=== PATIENT | female | born 1940 | race African-American/Black ===

== ENCOUNTER 2020-10-24 16:25 | Inpatient (IN) | payer MEDICARE, OTHER ==
[~2020-10-24] VITALS: Ht 154.9 cm; Wt 94.3 kg
[2020-10-24 18:00] VITALS: BP 108/70
[2020-10-24] MEDS ORDERED: ACETAMINOPHEN 325 MG TABLET. PO PRN (18:45)
[2020-10-24] MEDS ORDERED: ASPIRIN RECTAL 300 MG SUPP. PR PRN (18:45)
[2020-10-24] MEDS: ATORVASTATIN CALCIUM 40 MG TABLET. PO SCH (21:00)
[2020-10-24 22:11] VITALS: BP 107/63
[2020-10-25] MEDS ORDERED: ONDANSETRON PF 4 MG/2 ML VIAL. IVP PRN (01:15)
[2020-10-25] MEDS: IV DEXTROSE 5 %-0.45 % NACL 1,000 ML IV SCH ×2 (02:40→17:23)
[2020-10-25 03:00] VITALS: BP 134/50
[2020-10-25 07:00] VITALS: BP 135/95
[2020-10-25 07:04] LABS: BASO % 0 % (0-3); EOS % 0 % (0-3); HEMATOCRIT 34.2 % (36.0-47.0); HEMOGLOBIN 11.4 g/dL (12.0-15.5); LYMPH # 0.8 x10^3/uL (1.0-4.8); LYMPH % 9 % (24-48); MEAN CORPUSCULAR HEMOGLOBIN 32 pg (25-35); MEAN CORPUSCULAR HGB CONC 33 g/dL (31-37); MEAN CORPUSCULAR VOLUME 96 fL (79-100); MONO # 0.6 x10^3/uL (0.0-1.1); MONO % 7 % (0-9); NEUT # 7.4 x10^3/uL (1.8-7.7); NEUT % 84 % (31-73); PLATELET COUNT 271 x10^3/uL (140-400); RED BLOOD COUNT 3.56 x10^6/uL (3.50-5.40); RED CELL DISTRIBUTION WIDTH 13.8 % (11.5-14.5); WHITE BLOOD COUNT 8.9 x10^3/uL (4.0-11.0)
[2020-10-25 07:23] LABS: ALBUMIN 2.9 g/dL (3.4-5.0); ALBUMIN/GLOBULIN RATIO 0.7 (1.0-1.7); CALCIUM 9.2 mg/dL (8.5-10.1); CREATININE 2.3 mg/dL (0.6-1.0); GFR 24.6; POTASSIUM 4.9 mmol/L (3.5-5.1); TOTAL BILIRUBIN 0.6 mg/dL (0.2-1.0); TOTAL PROTEIN 6.8 g/dL (6.4-8.2)
[2020-10-25] MEDS ORDERED: ASPIRIN ENTERIC COATED 325 MG TABLET.DR. PO SCH (08:00)
--- NOTE | 2020-10-25 08:44 | PDOC2 ---
CARDIAC CONSULT DATE OF CONSULT Date of Consult DATE: 10/25/20 TIME: 08:33 REASON FOR CONSULT Reason for Consult: AFIB, CVA REFERRING PHYSICIAN Referring Physician: Mikel SOURCE Source: Chart review CURRENT MEDICATIONS CURRENT MEDICATIONS Current Medications Medications (Trade) Dose Ordered Sig/Adrian Route PRN Reason Start Time Stop Time Status Last Admin Dose Admin Dextrose/Sodium Chloride 1,000 ml @ 100 mls/hr Q10H IV 10/25/20 01:15 10/25/20 02:40 ALLERGIES ALLERGIES: Coded Allergies: No Known Drug Allergies (Unverified , 10/24/20) VITALS/I&O VITALS/I&O: Vital Signs Date Time Temp Pulse Resp B/P (MAP) Pulse Ox O2 Delivery O2 Flow Rate FiO2 10/25/20 07:00 98.0 88 16 135/95 (108) 93 Room Air 98.0 I & O 10/24/20 10/24/20 10/25/20 15:00 23:00 07:00 Intake Total 0 ml 0 ml Output Total 600 ml Balance 0 ml -600 ml LABS Lab: Laboratory Tests Test 10/25/20 05:45 White Blood Count 8.9 x10^3/uL (4.0-11.0) Red Blood Count 3.56 x10^6/uL (3.50-5.40) Hemoglobin 11.4 g/dL (12.0-15.5) L Hematocrit 34.2 % (36.0-47.0) L Mean Corpuscular Volume 96 fL (79-100) Mean Corpuscular Hemoglobin 32 pg (25-35) Mean Corpuscular Hemoglobin Concent 33 g/dL (31-37) Red Cell Distribution Width 13.8 % (11.5-14.5) Platelet Count 271 x10^3/uL (140-400) Neutrophils (%) (Auto) 84 % (31-73) H Lymphocytes (%) (Auto) 9 % (24-48) L Monocytes (%) (Auto) 7 % (0-9) Eosinophils (%) (Auto) 0 % (0-3) Basophils (%) (Auto) 0 % (0-3) Neutrophils # (Auto) 7.4 x10^3/uL (1.8-7.7) Lymphocytes # (Auto) 0.8 x10^3/uL (1.0-4.8) L Monocytes # (Auto) 0.6 x10^3/uL (0.0-1.1) Eosinophils # (Auto) 0.0 x10^3/uL (0.0-0.7) Basophils # (Auto) 0.0 x10^3/uL (0.0-0.2) Sodium Level 138 mmol/L (136-145) Potassium Level 4.9 mmol/L (3.5-5.1) Chloride Level 101 mmol/L (98-107) Carbon Dioxide Level 30 mmol/L (21-32) Anion Gap 7 (6-14) Blood Urea Nitrogen 27 mg/dL (7-20) H Creatinine 2.3 mg/dL (0.6-1.0) H Estimated GFR (Cockcroft-Gault) 24.6 BUN/Creatinine Ratio 12 (6-20) Glucose Level 103 mg/dL (70-99) H Calcium Level 9.2 mg/dL (8.5-10.1) Total Bilirubin 0.6 mg/dL (0.2-1.0) Aspartate Amino Transferase (AST) 16 U/L (15-37) Alanine Aminotransferase (ALT) 18 U/L (14-59) Alkaline Phosphatase 92 U/L (46-116) Total Protein 6.8 g/dL (6.4-8.2) Albumin 2.9 g/dL (3.4-5.0) L Albumin/Globulin Ratio 0.7 (1.0-1.7) L Laboratory Tests 10/25/20 05:45 Laboratory Tests 10/25/20 05:45 ASSESSMENT/PLAN ASSESSMENT/PLAN 1. Acute left MCA CVA 2. PAFIB: noted on 07/2020. Presently on AFIB. she declined any cardiac workup and anticoagulation therapy 3. JULIA on CKD; Cr down to 2.3 4. Hyperkalemia; resolved 5. Hypertension; controlled 6. Hyperlipidemia: LDL 113 Recommendations 1. Start on low dose IV metoprolol. 2. Statin pending swallow eval 3. Lovenox for now. Further discussion with pt and family in regards to anticoagulation and goals of care. Will DC ASA while on lovenox. 4. TTE today. 5. DC lasix and ACEi. IVF while NPO 6. Supportive care LORENZO MORRIS APRN Oct 25, 2020 08:44
--- NOTE | 2020-10-25 09:30 | HP ---
ADMIT DATE: 10/25/2020 HISTORY OF PRESENT ILLNESS: The patient is an 80-year-old -[place] female patient who was admitted to [facility] to Emergency Room with altered mental status. Her family stated that she was at her normal state of health at around 6:30 in the morning and was acting normally; however, sometimes afterwards the patient became confused and approximately 30 minutes prior to arrival to the Emergency Room, she was having decreased movement in her right side. No reported recent illness, fever, chills or headaches. By the time she arrived to the Emergency Room, the patient was unresponsive and unable to provide any significant history. On clinical examination, her [place] Coma Scale was 9. She does respond to noxious stimuli and appeared to have decreased strength on the right side of the face, right upper and right lower extremity. She was extensively investigated and has had lab work, which showed that her CBC was unremarkable. Her chemistry showed she has hyperkalemia with a potassium of 6.2 on chronic kidney disease with BUN of 40, creatinine 3. PT, INR and aPTT were normal. She had a CT scan done, which basically showed that she has generalized parenchymal atrophy with areas of decreased attenuation are seen within the periventricular and subcortical white matter on both cerebral hemispheres consistent with area of small vessel ischemic disease. No acute parenchymal abnormality seen. No extra-axial fluid collection is noted. No skull fracture. Her bilateral carotid Doppler showed no evidence of greater than 50% stenosis involving the internal carotid arteries. Her chest x-ray showed no acute pulmonary finding. She was admitted with altered mental status, likely due to middle cerebral artery territory infarct with right side hemiplegia together with aphasia and dysphagia. We did repeat another CT scan of the head yesterday, which showed that the patient has new hypodensity within the left basal ganglia involving the caudate and putamen, concerning for ischemia. No intracranial hemorrhage. Mild mass effect on the anterior horn of the left lateral ventricle. No hydrocephalus. Mild brain parenchymal volume loss, mild additional foci of decreased attenuation within the hemispheric white matter, most often due to chronic microvascular ischemia. Imaged orbits are unremarkable. Imaged paranasal sinuses and mastoid air cells are clear. No acute calvarial fracture. Given that the patient continued to be aphasic and has dysphagia, discussed with her family. The patient was transferred to [facility] to consult the Gastroenterology team for placement of a PEG tube, consult the Neurology as well as the Cardiology as she is known to have atrial fibrillation; however, she was not on any anticoagulation before. PAST MEDICAL HISTORY: Significant for hypertension, hyperlipidemia, chronic kidney disease, rheumatic fever, glaucoma. She is legally blind and she is known to have chronic atrial fibrillation without anticoagulation. Apparently, she is known to the Cardiology team at [facility]. She apparently was diagnosed with atrial fibrillation on 07/2020. Apparently, anticoagulation was offered to her at that time, but she was not willing to take any medication. PAST SURGICAL HISTORY: Significant for bilateral cataract extraction, tubal ligation, cholecystectomy, back surgery. ALLERGIES: She has no known drug allergies. MEDICATIONS: She was on following home medications: She was on metoprolol succinate 200 mg once a day, amlodipine besylate 10 mg once a day, ramipril 10 mg once a day, potassium chloride 20 mEq once a day, furosemide 40 mg daily, magnesium oxide 400 mg daily, omeprazole 40 mg once a day and paricalcitol 1 mcg 3 times per week for hyperparathyroidism on Friday, Friday, and Friday. FAMILY HISTORY: She has a sister still alive and older. She has 2 brothers who of cancer. One brother of emphysema. One sister of cancer and one sister of emphysema. Both parents are . They when she was very young. SOCIAL HISTORY: She is , has 2 daughters and 1 son. She never smoked. Does not drink alcohol or use recreational drugs. She is retired. REVIEW OF SYSTEMS: Unobtainable. PHYSICAL EXAMINATION: GENERAL: When I examined her, she looked well and was clearly in no apparent respiratory distress. No pallor, jaundice, cyanosis or thyromegaly. No jugular venous distention. No lower limb edema. VITAL SIGNS: Her heart rate was 110, blood pressure was 134/50, temperature was 98.6, respiratory rate was 16, and oxygen saturation was 94% on room air. HEAD, EYES, EARS, NOSE AND THROAT: Normocephalic, atraumatic. NECK: Supple. HEART: Showed normal first and second heart sounds. No gallop, rub or murmur. CHEST: Clear to auscultation. No crepitation or rhonchi. ABDOMEN: Distended, soft, nontender. NEUROLOGIC: She is definitely more responsive. She attempts to open her eyes and also attempts to mouth some words. This morning, she definitely respond to verbal command. She lifts her left arm and squeezes fingers and she wiggled her toes when asked to do so. She has flaccid paralysis of the right upper and right lower extremity and right-sided facial droop. LABORATORY WORK: This morning showed a white cell count of 8900, hemoglobin 11.4, hematocrit 34, MCV 96, and platelet count of 271,000. Her chemistry showed that her serum sodium was 138, potassium 4.9, chloride 106, bicarbonate 30, anion gap of 7, BUN 27, creatinine 2.3, estimated GFR was 24 mL per minute. Her glucose was 103, calcium was 9.2. Total bilirubin, AST, ALT, alkaline phosphatase were normal. Total protein 6.8, albumin was 2.9. ASSESSMENT: 1. 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 Has acute on chronic kidney injury, improved as her serum creatinine came down from 3 to 2.3 mg/dL. 2. Hyperkalemia, resolved. Her potassium is 4.9. 3. The patient has multiple other medical problems including; hypertension, hyperlipidemia, chronic kidney disease, glaucoma, rheumatic fever as well as chronic atrial fibrillation. PLAN: My plan is to consult the neurologist, club former as well as coffee sommelier with a plan to place percutaneous endoscopic gastrostomy tube for nutritional support. I will also consult Physical and Occupational Therapy, and Speech Therapy. SOUMYA TREVIÑO MD DR: JENIFFER/nidhi JOB#: [id number] / [id number]
--- NOTE | 2020-10-25 10:29 | PDOC2 ---
GI CONSULT Date of Service: DATE: 10/25/20 TIME: 10:18 Reason For Consult: PEG HPI: HPI: 80 y/o female sent from [facility] - evaluated there w/ altered mental status and r ight-sided weakness - transferred here w/ suspected stroke. [facility] records reviewed, d/w nurse and neurology - no information from patient. H/o A Fib not on anti-coagulation. Apparently family would like to pursue PEG if indicated. No GI concerns per nurse. Med list includes omeprazole. S/p cholecystectomy. Normal INR @ [facility]. PMH: PMH: per chart - HTN, HLD, CKD, rheumatic fever, glaucoma/legally blind back surgery, cholecystectomy, tubal ligation, bilateral cataract extraction FH: Family History: Cancer (siblings - unknown kind) Social History: Smoke: No ALCOHOL: none Drugs: None ROS: unable to obtain Vitals: Vitals: Vital Signs Date Time Temp Pulse Resp B/P (MAP) Pulse Ox O2 Delivery O2 Flow Rate FiO2 10/25/20 07:00 98.0 88 16 135/95 (108) 93 Room Air 98.0 Labs: Labs: Laboratory Tests Test 10/25/20 05:45 White Blood Count 8.9 x10^3/uL (4.0-11.0) Red Blood Count 3.56 x10^6/uL (3.50-5.40) Hemoglobin 11.4 g/dL (12.0-15.5) Hematocrit 34.2 % (36.0-47.0) Mean Corpuscular Volume 96 fL (79-100) Mean Corpuscular Hemoglobin 32 pg (25-35) Mean Corpuscular Hemoglobin Concent 33 g/dL (31-37) Red Cell Distribution Width 13.8 % (11.5-14.5) Platelet Count 271 x10^3/uL (140-400) Neutrophils (%) (Auto) 84 % (31-73) Lymphocytes (%) (Auto) 9 % (24-48) Monocytes (%) (Auto) 7 % (0-9) Eosinophils (%) (Auto) 0 % (0-3) Basophils (%) (Auto) 0 % (0-3) Neutrophils # (Auto) 7.4 x10^3/uL (1.8-7.7) Lymphocytes # (Auto) 0.8 x10^3/uL (1.0-4.8) Monocytes # (Auto) 0.6 x10^3/uL (0.0-1.1) Eosinophils # (Auto) 0.0 x10^3/uL (0.0-0.7) Basophils # (Auto) 0.0 x10^3/uL (0.0-0.2) Sodium Level 138 mmol/L (136-145) Potassium Level 4.9 mmol/L (3.5-5.1) Chloride Level 101 mmol/L (98-107) Carbon Dioxide Level 30 mmol/L (21-32) Anion Gap 7 (6-14) Blood Urea Nitrogen 27 mg/dL (7-20) Creatinine 2.3 mg/dL (0.6-1.0) Estimated GFR (Cockcroft-Gault) 24.6 BUN/Creatinine Ratio 12 (6-20) Glucose Level 103 mg/dL (70-99) Calcium Level 9.2 mg/dL (8.5-10.1) Total Bilirubin 0.6 mg/dL (0.2-1.0) Aspartate Amino Transf (AST/SGOT) 16 U/L (15-37) Alanine Aminotransferase (ALT/SGPT) 18 U/L (14-59) Alkaline Phosphatase 92 U/L (46-116) Total Protein 6.8 g/dL (6.4-8.2) Albumin 2.9 g/dL (3.4-5.0) Albumin/Globulin Ratio 0.7 (1.0-1.7) Allergies: Coded Allergies: No Known Drug Allergies (Unverified , 10/24/20) Medications: Current Medications Medications (Trade) Dose Ordered Sig/Adrian Route PRN Reason Start Time Stop Time Status Last Admin Dose Admin Aspirin (Aspirin Rectal Supp) 300 mg PRN DAILY PRN MA IF UNABLE TO TAKE PO 10/24/20 18:45 10/25/20 09:09 Dextrose/Sodium Chloride 1,000 ml @ 100 mls/hr Q10H IV 10/25/20 01:15 10/25/20 02:40 PE: GEN: NAD HEENT: Atraumatic LUNGS: clear anteriorly HEART: irregular ABD: quiet BS, soft, non-tender, open ayse scar RUQ EXTREMITY: No edema SKIN: No rashes, no jaundice NEURO/PSYCH: right-sided weakness - attempts to open eyes when I call her name, mumbles and grunts A/P: A/P: CVA, A Fib Normocytic anemia, CKD ?GERD S/p cholecystectomy -- Will follow along w/ workup including ASSOCIATE PROFESSOR OF FORESTRY eval - consider PEG placement if indicated. IV acid-videotape sales representative. ALYSE BOWDEN Oct 25, 2020 10:29
[2020-10-25 10:55] VITALS: BP 101/77
--- NOTE | 2020-10-25 11:44 | PDOC2 ---
NEUROLOGY CONSULT Date of Service DOS: DATE: 10/25/20 TIME: 11:44 Reason for Consult Reason for Consult: Stroke Referring Physician Referring Physician: Dr. Morin Source Source: Chart review, Patient History of Present Illness History of Present Illness The patient is an 80-year-old right-handed female admitted to [facility] on 10/23 with sudden onset of altered mental status. Last known normal was 6:30 in the morning, patient presented to the emergency room around 11 AM. She was observed to have right-sided weakness with a [place] Coma Scale of 9. There is no documentation of any consideration for transfer to a tertiary hospital for clot retrieval. There is also no mention of alteplase consideration, but apparently it was felt that she was too far along outside the window. She was admitted to [facility] and had a second CT yesterday showing infarction and it was decided to transfer her to [place] for an MRI scan. There is no prior history of stroke, seizure, or head injury. A CT angiogram was not attempted because of renal insufficiency. Carotid Doppler studies were done, negative as reviewed below. She does have chronic atrial fibrillation, not on anticoagulation because she refused in the past, tells me. Past Medical History Cardiovascular: AFIB, HTN, Hyperlipidemia, Other (Rheumatic fever) ENT: Other (Glaucoma, legally blind) Renal/: Chronic renal failure Past Surgical History Past Surgical History: Cholecystectomy, Cataract Removal, Tubal Ligation, Other (Back surgery) Family History Family History: Cancer Social History Social History She is , has 2 daughters and 1 son. She never smoked. Does not drink alcohol or use recreational drugs. She is retired. Current Medications Current Medications Current Medications Atorvastatin Calcium (Lipitor) 80 mg QHS PO ; Start 10/24/20 at 21:00 Acetaminophen (Tylenol) 650 mg PRN Q6HRS PRN PO TEMP > 100.3'F; Start 10/24/20 at 18:45 Aspirin (Ecotrin) 325 mg DAILYWBKFT PO ; Start 10/25/20 at 08:00; Stop 10/25/20 at 08:42; Status DC Aspirin (Aspirin Rectal Supp) 300 mg PRN DAILY PRN NJ IF UNABLE TO TAKE PO Last administered on 10/25/20at 09:09; Start 10/24/20 at 18:45 Enoxaparin Sodium (Lovenox 80mg Syringe) 80 mg Q24H SQ ; Start 10/25/20 at 20:00 Dextrose/Sodium Chloride 1,000 ml @ 100 mls/hr Q10H IV Last administered on 10/25/20at 02:40; Start 10/25/20 at 01:15 Ondansetron HCl (Zofran) 4 mg PRN Q8HRS PRN IVP NAUSEA/VOMITING 1ST CHOICE; Start 10/25/20 at 01:15 Metoprolol Tartrate (Lopressor Vial) 2.5 mg Q6HRS IVP ; Start 10/25/20 at 12:00 Pantoprazole Sodium (PROTONIX VIAL for IV PUSH) 40 mg DAILYAC IVP ; Start 10/25/20 at 11:00 Allergies Allergies: Coded Allergies: No Known Drug Allergies (Unverified , 10/24/20) ROS Review of System Negative for fever, chills, weight loss, shortness of breath, chest pain, in digestion, hematochezia, melena, and dysuria. Full 14-point review of systems is negative. Physical Exam Physical Examination General: Well-developed, well-nourished black female in no acute distress HEENT: Normocephalic andatraumatic. Temporal arteriespulsatile and nontender. Neck: Supple without bruit, no meningismus Musculoskeletal: Stability:see neurologic. Gait exam:see neurologic. Tone:see neurologic.Strength:see neurologic. Neurological: Mental Status:orientation, memory, attention span/concentration, language, fund of knowledge: Aphasic, cannot follow commands, I think she mouths her name to me when asked, but that is about it. Cranial Nerves:Pupils equal and reactive to light, extraocular movements areintact, does not react to visual stimuli. Facial sensation is normal. There is a right central facial weakness. All other cranial related problems are negative except as mentioned before.Reflexes:2+ and symmetric extensor plantar response on the right and flexor on the left. Motor: Right hemiparesis, increased tone on the right. Coordination and gait:Not testable. Sensory:Responds to pinprick in all 4 extremities. Vitals VITALS Vital Signs Date Time Temp Pulse Resp B/P (MAP) Pulse Ox O2 Delivery O2 Flow Rate FiO2 10/25/20 10:55 97.9 117 18 101/77 (85) 91 Room Air 97.9 Labs Labs Laboratory Tests Test 10/25/20 05:45 White Blood Count 8.9 x10^3/uL (4.0-11.0) Red Blood Count 3.56 x10^6/uL (3.50-5.40) Hemoglobin 11.4 g/dL (12.0-15.5) Hematocrit 34.2 % (36.0-47.0) Mean Corpuscular Volume 96 fL (79-100) Mean Corpuscular Hemoglobin 32 pg (25-35) Mean Corpuscular Hemoglobin Concent 33 g/dL (31-37) Red Cell Distribution Width 13.8 % (11.5-14.5) Platelet Count 271 x10^3/uL (140-400) Neutrophils (%) (Auto) 84 % (31-73) Lymphocytes (%) (Auto) 9 % (24-48) Monocytes (%) (Auto) 7 % (0-9) Eosinophils (%) (Auto) 0 % (0-3) Basophils (%) (Auto) 0 % (0-3) Neutrophils # (Auto) 7.4 x10^3/uL (1.8-7.7) Lymphocytes # (Auto) 0.8 x10^3/uL (1.0-4.8) Monocytes # (Auto) 0.6 x10^3/uL (0.0-1.1) Eosinophils # (Auto) 0.0 x10^3/uL (0.0-0.7) Basophils # (Auto) 0.0 x10^3/uL (0.0-0.2) Sodium Level 138 mmol/L (136-145) Potassium Level 4.9 mmol/L (3.5-5.1) Chloride Level 101 mmol/L (98-107) Carbon Dioxide Level 30 mmol/L (21-32) Anion Gap 7 (6-14) Blood Urea Nitrogen 27 mg/dL (7-20) Creatinine 2.3 mg/dL (0.6-1.0) Estimated GFR (Cockcroft-Gault) 24.6 BUN/Creatinine Ratio 12 (6-20) Glucose Level 103 mg/dL (70-99) Calcium Level 9.2 mg/dL (8.5-10.1) Total Bilirubin 0.6 mg/dL (0.2-1.0) Aspartate Amino Transf (AST/SGOT) 16 U/L (15-37) Alanine Aminotransferase (ALT/SGPT) 18 U/L (14-59) Alkaline Phosphatase 92 U/L (46-116) Total Protein 6.8 g/dL (6.4-8.2) Albumin 2.9 g/dL (3.4-5.0) Albumin/Globulin Ratio 0.7 (1.0-1.7) Laboratory Tests Test 10/25/20 05:45 White Blood Count 8.9 x10^3/uL (4.0-11.0) Red Blood Count 3.56 x10^6/uL (3.50-5.40) Hemoglobin 11.4 g/dL (12.0-15.5) Hematocrit 34.2 % (36.0-47.0) Mean Corpuscular Volume 96 fL (79-100) Mean Corpuscular Hemoglobin 32 pg (25-35) Mean Corpuscular Hemoglobin Concent 33 g/dL (31-37) Red Cell Distribution Width 13.8 % (11.5-14.5) Platelet Count 271 x10^3/uL (140-400) Neutrophils (%) (Auto) 84 % (31-73) Lymphocytes (%) (Auto) 9 % (24-48) Monocytes (%) (Auto) 7 % (0-9) Eosinophils (%) (Auto) 0 % (0-3) Basophils (%) (Auto) 0 % (0-3) Neutrophils # (Auto) 7.4 x10^3/uL (1.8-7.7) Lymphocytes # (Auto) 0.8 x10^3/uL (1.0-4.8) Monocytes # (Auto) 0.6 x10^3/uL (0.0-1.1) Eosinophils # (Auto) 0.0 x10^3/uL (0.0-0.7) Basophils # (Auto) 0.0 x10^3/uL (0.0-0.2) Sodium Level 138 mmol/L (136-145) Potassium Level 4.9 mmol/L (3.5-5.1) Chloride Level 101 mmol/L (98-107) Carbon Dioxide Level 30 mmol/L (21-32) Anion Gap 7 (6-14) Blood Urea Nitrogen 27 mg/dL (7-20) Creatinine 2.3 mg/dL (0.6-1.0) Estimated GFR (Cockcroft-Gault) 24.6 BUN/Creatinine Ratio 12 (6-20) Glucose Level 103 mg/dL (70-99) Calcium Level 9.2 mg/dL (8.5-10.1) Total Bilirubin 0.6 mg/dL (0.2-1.0) Aspartate Amino Transf (AST/SGOT) 16 U/L (15-37) Alanine Aminotransferase (ALT/SGPT) 18 U/L (14-59) Alkaline Phosphatase 92 U/L (46-116) Total Protein 6.8 g/dL (6.4-8.2) Albumin 2.9 g/dL (3.4-5.0) Albumin/Globulin Ratio 0.7 (1.0-1.7) Images Images CT scan of the head without contrast 10/23/2020, [facility] Clinical History: Right-sided weakness. Code stroke. Technique: Unenhanced, contiguous, 5 mm axial sections were obtained through the head. One or more of the following individualized dose reduction techniques were utilized for this study: 1. Automated exposure control. 2. Adjustment of the mA and/or kV according to patient size. 3. Use of iterative reconstruction technique. Findings: Comparison study is dated 07/03/2016. There is generalized parenchymal atrophy. Areas of decreased attenuation are seen within the periventricular and subcortical white matter of both cerebral hemispheres consistent with areas of small vessel ischemic disease. No acute parenchymal abnormality is seen. No extra-axial fluid collection is noted. No skull fracture is seen. Impression: No acute intracranial abnormality is seen. Carotid Doppler sonogram, 10/24, [facility]. HISTORY: Right-sided weakness. Atherosclerosis. TECHNIQUE: Beth scale and color Doppler sonographic evaluation of the neck with spectral waveform analysis was performed and static images are submitted for review. FINDINGS: There is atherosclerotic plaque within the bulbs and proximal internal and external carotid arteries. The peak systolic velocity within the right common carotid artery is 54 cm/sec. The peak systolic velocity within the right internal carotid artery is 46 cm/sec and the end diastolic velocity within the right internal carotid artery is 18 cm/sec. The right ICA/CCA ratio is 1.0. The peak systolic velocity within the left common carotid artery is 48 cm/sec. The peak systolic velocity within the left internal carotid artery is 33 cm/sec and the end diastolic velocity within the left internal carotid artery is 10 cm/sec. The left ICA/CCA ratio is less than 1.0. There is normal antegrade flow within both vertebral arteries. IMPRESSION: No Doppler evidence of greater than 50 percent stenosis involving the internal carotid arteries. CT HEAD/BRAIN WO, 10/24, [place]'s History: Reason: worsening level of consciousness / Spl. Instructions: / History: Comparison: October 23, 2020 Technique: Noncontrast CT imaging was performed of the head. Exposure: One or more of the following individualized dose reduction techniques were utilized for this examination: 1. Automated exposure control 2. Adjustment of the mA and/or kV according to patient size 3. Use of iterative reconstruction technique. Findings: New hypodensity within the left basal ganglia involving the caudate and putamen concerning for ischemia. No intracranial hemorrhage. Mild mass effect on the anterior horn of the left lateral ventricle. No hydrocephalus. Mild brain parenchymal volume loss. Mild additional foci of decreased attenuation within the hemispheric white matter, most often due to chronic microvascular ischemia. Imaged orbits are unremarkable. Imaged paranasal sinuses and mastoid air cells are clear. No acute calvarial fracture. TMJ arthropathy. Impression: 1. New hypodensity within the left basal ganglia, concerning for subacute infarct. Recommend MRI to further evaluate. Assessment/Plan Assessment/Plan Impression: Clinically a large left middle cerebral artery stroke, probably related to her atrial fibrillation. Atrial fibrillation Obtundation, dysphagia Recommendations: MRI of the brain with MR angiogram of the head and neck, avoiding contrast because of the renal disease Aspirin Rehabilitation modalities She will most likely need a PEG tube Disagree with full-strength Lovenox, this is a large stroke, she has renal failure, risks exceed benefits. I change the dose to 30 mg every [address] Morin Thank you for letting me help with the patient's care. NIECY EDWARDS MD Oct 25, 2020 11:44
[2020-10-25] MEDS: PANTOPRAZOLE IV PUSH 40 MG VIAL. IVP SCH (11:52)
[2020-10-25] MEDS: METOPROLOL IV PUSH 5 MG/5 ML VIAL. IVP SCH ×3 (11:53→23:12)
--- NOTE | 2020-10-25 12:02 | PDOC ---
LORENZO MORRIS DIRECTOR OF EARLY CHILDHOOD EDUCATION 10/25/20 1202: CARDIO Progress Notes Date and Time Date of Service 10/25/2020 Time of Evaluation 1010 Subjective Subjective: Other (aphasic) Vitals Vitals Vital Signs Date Time Temp Pulse Resp B/P (MAP) Pulse Ox O2 Delivery O2 Flow Rate FiO2 10/25/20 10:55 97.9 117 18 101/77 (85) 91 Room Air 97.9 Weight Weight [ ] Input and Output Intake and Output Intake and Output 10/25/20 07:00 Intake Total 0 ml Output Total 600 ml Balance -600 ml Intake Oral 0 ml Output Urine Total 600 ml Laboratory Labs Laboratory Tests Test 10/25/20 05:45 White Blood Count 8.9 x10^3/uL (4.0-11.0) Red Blood Count 3.56 x10^6/uL (3.50-5.40) Hemoglobin 11.4 g/dL (12.0-15.5) Hematocrit 34.2 % (36.0-47.0) Mean Corpuscular Volume 96 fL (79-100) Mean Corpuscular Hemoglobin 32 pg (25-35) Mean Corpuscular Hemoglobin Concent 33 g/dL (31-37) Red Cell Distribution Width 13.8 % (11.5-14.5) Platelet Count 271 x10^3/uL (140-400) Neutrophils (%) (Auto) 84 % (31-73) Lymphocytes (%) (Auto) 9 % (24-48) Monocytes (%) (Auto) 7 % (0-9) Eosinophils (%) (Auto) 0 % (0-3) Basophils (%) (Auto) 0 % (0-3) Neutrophils # (Auto) 7.4 x10^3/uL (1.8-7.7) Lymphocytes # (Auto) 0.8 x10^3/uL (1.0-4.8) Monocytes # (Auto) 0.6 x10^3/uL (0.0-1.1) Eosinophils # (Auto) 0.0 x10^3/uL (0.0-0.7) Basophils # (Auto) 0.0 x10^3/uL (0.0-0.2) Sodium Level 138 mmol/L (136-145) Potassium Level 4.9 mmol/L (3.5-5.1) Chloride Level 101 mmol/L (98-107) Carbon Dioxide Level 30 mmol/L (21-32) Anion Gap 7 (6-14) Blood Urea Nitrogen 27 mg/dL (7-20) Creatinine 2.3 mg/dL (0.6-1.0) Estimated GFR (Cockcroft-Gault) 24.6 BUN/Creatinine Ratio 12 (6-20) Glucose Level 103 mg/dL (70-99) Calcium Level 9.2 mg/dL (8.5-10.1) Total Bilirubin 0.6 mg/dL (0.2-1.0) Aspartate Amino Transf (AST/SGOT) 16 U/L (15-37) Alanine Aminotransferase (ALT/SGPT) 18 U/L (14-59) Alkaline Phosphatase 92 U/L (46-116) Total Protein 6.8 g/dL (6.4-8.2) Albumin 2.9 g/dL (3.4-5.0) Albumin/Globulin Ratio 0.7 (1.0-1.7) Physical Exam HEENT: Neck Supple W Full Motion Chest: Symmetric LUNGS: Other (diminished bases) Heart: irregularly irregular (AFIB 90-110) Abdomen: Other (soft obese) Extremities: No Calf Tenderness, Other (trace LE edema) Neurology: other (aphasia, able to follow commands; right facial droop; drowsy) Assessment Assessment Initially seen at [facility] on 10/24/2020 1. Acute left MCA CVA with aphasia 2. PAFIB: noted on 07/2020. Presently on AFIB 90-110. she declined any cardiac workup and anticoagulation therapy last yr. 3. JULIA on CKD; Cr down to 2.3 4. Hyperkalemia; resolved 5. Hypertension; controlled 6. Hyperlipidemia: LDL 113 7. Encephalopathy Recommendations 1. Start on low dose IV metoprolol. Monitor BP trend and HR 2. Statin pending swallow eval 3. Lovenox for now. Seen by Dr. Moore at [facility]. Further discussion with pt and family in regards to anticoagulation and goals of care. Will DC ASA while on lovenox. 4. TTE today. 5. DC lasix and ACEi. IVF while NPO 6. Supportive care Justicifation of Admission Dx: Justifications for Admission: Justification of Admission Dx: Yes ROMERO ENGLAND MD 10/25/20 1734: CARDIO Progress Notes Plan Plan Pt. seen and examined. Agree with above DIRECTOR OF RETAIL ANALYTICS note. Supportive care. LORENZO MORRIS DIRECTOR OF EARLY CHILDHOOD EDUCATION Oct 25, 2020 12:02 ROMERO ENGLAND MD Oct 25, 2020 17:34
--- NOTE | 2020-10-25 13:37 | NUR ---
SS following for discharge planning. SS reviewed pt chart and discussed with pt RN. Pt is from home with family and is currently on room air. COVID19 test pending. PT/OT/ST ordered. NPO. SS will continue to follow for discharge planning.
--- NOTE | 2020-10-25 15:32 | RAD ---
MRI BRAIN WO Date: 10/25/2020 1:06 PM Indication: CVA Comparison: CT 10/24/2020. Technique: Multiplanar multisequence MRI of the brain was performed without intravenous contrast usin g the standard protocol. Findings: Moderate size region of restricted diffusion involving the left caudate head, anterior limb internal capsule, and putamen which corresponds to the area of infarct seen on the CT. Couple of additional p unctate foci of restricted diffusion along the insula and left temporal lobe. No acute hemorrhage. Th e ventricles are normal in size and configuration without hydrocephalus. Mild scattered FLAIR hyperin tensities in the subcortical and periventricular deep white matter, a nonspecific finding, most commo nly seen with chronic small vessel ischemic disease. Mild cerebral volume loss. The scalp and calvarium are normal. The pituitary and sella are normal. No Chiari malformation. The v isualized upper cervical spine is normal. The visualized orbits and globes are normal. The visualized paranasal sinuses are clear. The mastoid air cells are clear. IMPRESSION: 1. Moderate-sized area of acute to subacute infarct involving the left basal ganglia, which correspon ds to the area of abnormality seen on the prior CTA. There are a couple of additional punctate foci a cute infarct in the left insula and temporal lobe. No acute hemorrhage. 2. Mild chronic small vessel ischemic disease and mild cerebral volume loss. Electronically signed by: Jamey Kenny MD (10/25/2020 3:30 PM) [id number]
--- NOTE | 2020-10-25 15:32 | RAD ---
MRA BRAIN WO, MRA NECK WITHOUT CONTRAST DATE: 10/25/2020 1:08 PM INDICATION: CVA MRA HEAD TECHNIQUE: Axial 3-D vlyf-[id number]-gjsczo images of the intracranial vessels without contrast. 3D reformatted images were performed on a separate workstation and reviewed. MRA NECK TECHNIQUE: MR angiography of the neck was performed without contrast using time of flight te chnique. 3D reformatted images were performed on a separate workstation and reviewed. COMPARISON: MRI brain obtained concurrently. FINDINGS: Head: Anterior Circulation: The visualized distal internal carotid arteries are patent with no stenosis or aneurysm. Focal signal dropout of a left MCA distal M2 branch. The visualized anterior cerebral and r ight middle cerebral artery show no significant stenosis or aneurysm. Posterior Circulation: The visualized vertebral arteries, basilar artery, and posterior cerebral ann ilene show no significant stenosis or aneurysm. No arteriovenous malformation is seen. Neck: The examination is slightly limited secondary to patient motion and noncontrast technique. Antegrade flow within the right common carotid artery. No evidence of high-grade stenosis within the right internal carotid artery, though somewhat limited without intravenous contrast. Antegrade flow within the right vertebral artery. Antegrade flow within the left common carotid artery. No evidence of high-grade stenosis of the left internal carotid artery, though somewhat limited without intravenous contrast. Antegrade flow within the left vertebral artery. IMPRESSION: 1. Focal signal dropout of a left MCA distal M2 branch, consistent with high-grade stenosis. 2. Antegrade flow within the bilateral carotid and vertebral arteries. No evidence for high-grade jayson nosis of the internal carotid arteries, though somewhat limited without intravenous contrast. Measurements of vascular lumen diameter is performed on MIP and source images and measured by NASCET ([place] symptomatic carotid endarterectomy trial) criteria. Electronically signed by: Jamey Kenny MD (10/25/2020 3:29 PM) [id number]
[2020-10-25 16:43] VITALS: BP 110/52
--- NOTE | 2020-10-25 17:45 | CARD ---
MR#: [id number] Date of Study: 10/25/2020 Ordering Physician: LORENZO MORRIS, Referring Physician: LORENZO MORRIS, Tech: Elizabeth Flores APPROVED REPORT EXAM: Two-dimensional and M-mode echocardiogram with Doppler and color Doppler. Other Information Quality : FairHR: 100bpm INDICATION CVA/TIA Atrial Fibrillation RISK FACTORS Hypertension Hyperlipidemia 2D DIMENSIONS RVDd3.7 (2.9-3.5cm)Left Atrium(2D)3.3 (1.6-4.0cm) IVSd0.7 (0.7-1.1cm)Aortic Root(2D)2.6 (2.0-3.7cm) LVDd3.9 (3.9-5.9cm)LVOT Diameter1.7 (1.8-2.4cm) PWd1.0 (0.7-1.1cm)LVDs2.9 (2.5-4.0cm) FS (%) 24.8 %SV32.1 ml LVEF(%)49.8 (>50%) Aortic Valve AoV Peak Himanshu.140.2cm/sAoV VTI30.8cm AO Peak GR.7.9mmHgLVOT VTI 23.18cm AO Mean GR.6mmHg Mitral Valve MV E Hapttcxn325.3cm/sMV E Peak Gr.80mmHg MV DECEL [id number] A Oektvhsf73.0cm/s MV E Mean Gr.4mmHgE/A Ratio1.8 TDI Lateral E' P. V9.95cm/sMedial E' P. V18.67cm/s E/Lateral E'17.0E/Medial E'9.1 Tricuspid Valve TR P. [id number]/sTR Peak Gr.33mmHg LEFT VENTRICLE The left ventricle is normal size. There is normal left ventricular wall thickness. The left ventricu lar systolic function is normal. The Ejection Fraction is 55%. There is normal LV segmental wall olamide on. RIGHT VENTRICLE The right ventricle is normal size. There is normal right ventricular wall thickness. The right ventr icular systolic function is normal. ATRIA The left atrium is moderately dilated. The right atrium is moderately dilated. The interatrial septum is intact with no evidence for an atrial septal defect or patent foramen ovale as noted on 2-D or Do ppler imaging. AORTIC VALVE The aortic valve is calcified but opens well. Doppler and Color Flow revealed no significant aortic r egurgitation. There is no significant aortic valvular stenosis. Calculated aortic valve area is 1.87 cm2 with maximum pressure gradient of 10 mmHg and mean pressure gradient of 5 mmHg. MITRAL VALVE The mitral valve is mildly thickened. There is no evidence of mitral valve prolapse. There is no mitr al valve stenosis. Doppler and Color Flow revealed no mitral valve regurgitation noted. TRICUSPID VALVE The tricuspid valve is normal in structure and function. Doppler and Color Flow revealed trace tricus pid regurgitation with an estimated PAP of 39 mmHg. There is no tricuspid valve prolapse or vegetatio n. There is no tricuspid valve stenosis. PULMONIC VALVE The pulmonic valve is not well visualized. Doppler and Color Flow revealed trace pulmonic valvular re gurgitation. GREAT VESSELS The aortic root is normal in size. The IVC is normal in size and collapses >50% with inspiration. PERICARDIAL EFFUSION There is no evidence of significant pericardial effusion. Critical Notification Critical Value: No <Conclusion> The left ventricular systolic function is normal. The Ejection Fraction is 55%. There is normal LV segmental wall motion. Moderate biatrial enlargement. Trace tricuspid regurgitation with an estimated PAP of 39 mmHg. There is no evidence of significant pericardial effusion. Signed by : Haja Guzman, Electronically Approved : 10/25/2020 17:45:08
[2020-10-25 19:00] VITALS: BP 110/57
--- NOTE | 2020-10-25 19:20 | NUR ---
Pt in bed assessment completed vss pt sleeping responded to name will resume care and continue to monitor pt.
[2020-10-25] MEDS: ATORVASTATIN CALCIUM 40 MG TABLET. PO SCH (21:26)
[2020-10-25] MEDS: ENOXAPARIN 30 MG/0.3 ML SYRINGE. SQ SCH (21:27)
[2020-10-25 22:34] VITALS: BP 116/56
[2020-10-26] VITALS (7 sets, daily range): BP systolic 85–118; BP diastolic 44–66
[2020-10-26] MEDS: IV DEXTROSE 5 %-0.45 % NACL 1,000 ML IV SCH ×3 (03:35→21:45)
[2020-10-26] MEDS: PANTOPRAZOLE IV PUSH 40 MG VIAL. IVP SCH (05:58)
[2020-10-26] MEDS: METOPROLOL IV PUSH 5 MG/5 ML VIAL. IVP SCH ×3 (05:58→18:00)
--- NOTE | 2020-10-26 09:26 | PN ---
DATE: 10/26/2020 SUBJECTIVE: The patient is resting slightly propped up in bed, in no apparent respiratory distress. She has continued to be aphasic, although she attempts to mouth some words, continued to have flaccid right-sided hemiplegia. Her heart rate is irregular and she is in AFib with RVR. Blood pressure is soft. EXAMINATION: GENERAL: When I examined her, she was pale, but no jaundice or cyanosis. No lymphadenopathy, no thyromegaly. No jugular venous distention or limb edema. VITAL SIGNS: Her heart rate was 110, blood pressure was 96/54, temperature was 97.7, respiratory rate was 16, and oxygen saturation was 97% on room air. HEAD, EYES, EARS, NOSE, AND THROAT: Showed normocephalic, atraumatic. NECK: Supple. HEART: Regular first heart sounds, normal second heart sounds. No gallop, rub or murmur. CHEST: Showed central trachea, equal bilateral chest expansion, air entry, vesicular sounds. No crepitation or rhonchi. ABDOMEN: Distended, soft, nontender. NEUROLOGIC: She has right-sided facial droop, flaccid right-sided hemiplegia. She has also aphasia. Her intake and output are incompletely recorded. LABORATORY DATA: As of yesterday, her white cell count was 8900, hemoglobin 11, hematocrit 34, MCV 96, and platelet count of 271,000. Her chemistry showed a serum sodium 138, potassium 4.9, chloride 101, bicarbonate 30, anion gap of 7, BUN 27, creatinine 2.3, estimated GFR was 24 mL per minute. Her glucose 103, calcium was 9.2. Total bilirubin, AST, ALT, alkaline phosphatase were normal. Her total protein was 6.8, albumin was 2.9. Her SARS COVID-2 antigen rapid testing was negative. Neck MRA showed that the patient has focal signal dropout of the left mid cerebral artery, distal M2 branch, consistent with high-grade stenosis. Antegrade flow within the bilateral carotid and vertebral arteries. No evidence of high-grade stenosis of the internal carotid arteries. It was somewhat limited without intravenous contrast. The MRI of the brain showed that the patient has moderate-sized area of tktcc-lq-tgkjbuag infarct involving the left basal ganglia, which corresponds to the area of abnormality seen on prior CT angio. There are a couple of additional punctate foci of acute infarct in the left insula and temporal lobe. No acute hemorrhage. ASSESSMENT: 1. 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 2. Paroxysmal atrial fibrillation. 3. Acute on chronic kidney injury. Her creatinine is down to 2.3. 4. Hyperkalemia, resolved. 5. Hypertension, well controlled. 6. Hyperlipidemia and encephalopathy. PLAN: To continue with IV fluid in the form of D5 half normal saline. Continue with metoprolol to control the heart rate. Continue Protonix for GI prophylaxis and Lovenox for DVT prophylaxis. SOUMYA TREVIÑO MD DR: JENIFFER/nidhi JOB#: [id number] / [id number]
--- NOTE | 2020-10-26 10:00 | PDOC ---
Date of Service: DATE: 10/26/20 TIME: 09:54 Objective: Objective: No GI concerns per nurse. Vital Signs: Vital Signs Date Time Temp Pulse Resp B/P (MAP) Pulse Ox O2 Delivery O2 Flow Rate FiO2 10/26/20 07:00 97.7 99 16 96/54 (68) 97 Room Air 97.7 Labs: Laboratory Tests Test 10/25/20 15:35 SARS-CoV-2 Antigen (Rapid) Negative Imaging: Neck MRA IMPRESSION: 1. Focal signal dropout of a left MCA distal M2 branch, consistent with high- grade stenosis. 2. Antegrade flow within the bilateral carotid and vertebral arteries. No evidence for high-grade stenosis of the internal carotid arteries, though so mewhat limited without intravenous contrast. Brain MRI IMPRESSION: 1. Moderate-sized area of acute to subacute infarct involving the left basal ganglia, which corresponds to the area of abnormality seen on the prior CTA. There are a couple of additional punctate foci acute infarct in the left insula and temporal lobe. No acute hemorrhage. 2. Mild chronic small vessel ischemic disease and mild cerebral volume loss. CT Brain Angio IMPRESSION: 1. Focal signal dropout of a left MCA distal M2 branch, consistent with high- grade stenosis. 2. Antegrade flow within the bilateral carotid and vertebral arteries. No evidence for high-grade stenosis of the internal carotid arteries, though somewhat limited without intravenous contrast. CONE TREATER 10/25 * >2 min to swallow ice chip x3/3. No overt s/s aspiration. Rec con't NPO PE: GEN: NAD LUNGS: CTAB HEART: irregular ABD: soft, non-tender NEURO/PSYCH: attempts to open eyes, grunts, right-sided weakness A/P: CVA w/ aphasia and dysphagia - imaging as above A Fib, CKD Rapid COVID negative 10/25 -- Following along for possible PEG. Justicifation of Admission Dx: Justifications for Admission: Justification of Admission Dx: Yes ALYSE BOWDEN Oct 26, 2020 10:00
--- NOTE | 2020-10-26 11:43 | NUR ---
SS following up with discharge planning. SS reviewed pt chart and discussed with pt RN. Pt is from home with family and is currently on room air. COVID19 negative on rapid test. PCR test currently pending. Pt NPO with no diet at this time. ST following. PT/OT recommended jail unit. SS discussed with pt's daughter, Mary. Pt's daughter requesting referral be phoned and faxed to [place], ; fax [phone], once PO diet has been established. SS will continue to follow for discharge planning.
--- NOTE | 2020-10-26 13:00 | PDOC ---
GUSMarcSHASTAJACKLedy De Jesus COB SAWYER 10/26/20 1300: CARDIO Progress Notes Date and Time Date of Service 10/26/2020 Time of Evaluation 1050 Subjective Subjective: No Chest Pain, No shortness of breath, No Palpitations Vitals Vitals Vital Signs Date Time Temp Pulse Resp B/P (MAP) Pulse Ox O2 Delivery O2 Flow Rate FiO2 10/26/20 11:00 98.0 116 16 109/62 (78) 93 Room Air 98.0 Weight Weight [ ] Input and Output Intake and Output Intake and Output 10/26/20 07:00 Intake Total 0 ml Output Total 1050 ml Balance -1050 ml Intake Oral 0 ml Output Urine Total 1050 ml Laboratory Labs Laboratory Tests Test 10/25/20 15:35 SARS-CoV-2 Antigen (Rapid) Negative (NEGATIVE) Physical Exam HEENT: Neck Supple W Full Motion Chest: Symmetric LUNGS: Other (diminished bases) Heart: irregularly irregular (AFIB 90-110) Abdomen: Other (soft obese) Extremities: No Calf Tenderness, Other (trace LE edema) Neurology: other (more alert today, verbally responding more with questions) Assessment Assessment 1. Acute left MCA CVA with aphasia. EF and WM nml. aphasia improving 2. PAFIB: noted on 07/2020. Presently on AFIB 90-110. she declined any cardiac workup and anticoagulation therapy last yr. 3. JULIA on CKD; Cr down to 2.3 4. Hyperkalemia; resolved 5. Hypertension; controlled 6. Hyperlipidemia: LDL 113 7. Encephalopathy: better today Recommendations 1. Continue low dose IV metoprolol. Monitor BP trend and HR. Dig IV PRN 2. Statin pending swallow eval 3. Lovenox for now. Will change to low dose NOAC when able to take PO and clear with neurology 4. TTE today. 5. DC lasix and ACEi. IVF while NPO. BMP today 6. Continue rehab. Supportive care Justicifation of Admission Dx: Justifications for Admission: Justification of Admission Dx: Yes ROMERO ENGLAND MD 10/26/20 1532: CARDIO Progress Notes Plan Plan Patient seen and examined. Agree with above nurse practitioner note. Supportive care. LORENZO MORRIS APRN Oct 26, 2020 13:00 ROMERO ENGLAND MD Oct 26, 2020 15:32
[2020-10-26 13:56] LABS: CALCIUM 9.3 mg/dL (8.5-10.1); GFR 28.9; POTASSIUM 4.5 mmol/L (3.5-5.1)
--- NOTE | 2020-10-26 14:57 | PDOC ---
PROGRESS NOTES Date of Service DATE: 10/26/20 TIME: 14:41 Assessment Moderate-sized left basal ganglia, with punctate acute infarcts in the left insula and temporal lobe, due to left MCA distal M2 branch, high-grade stenosis, plus role of atrial fibrillation. Atrial fibrillation Obtundation, dysphagia Plan Aspirin Rehabilitation modalities PEG tube Disagree with full-strength Lovenox, this is a large stroke, she has renal failure, risks exceed benefits. I change the dose to 30 mg every 24 hours Discussed with daughter, Mary Reynolds. Prognosis is not good, this is a large stroke in an elderly patient, she will probably always have language difficulties, dysphagia, and right-sided weakness. If family desires, the patient does need to go on with a PEG tube give her enough nutrition to get the rehab at longterm unit. Subjective None Objective Vital Signs Date Time Temp Pulse Resp B/P (MAP) Pulse Ox O2 Delivery O2 Flow Rate FiO2 10/26/20 13:25 116 109/62 10/26/20 11:00 98.0 16 93 Room Air 98.0 Intake and Output 10/26/20 07:00 Intake Total 0 ml Output Total 1050 ml Balance -1050 ml Intake Oral 0 ml Output Urine Total 1050 ml PHYSICAL EXAM Eyes closed, mumbles a few replies, does not follow commands PERRL. Left gaze preference, does not react to visual stimuli CN: Right central facial weakness Muscle tone: Increased on right Muscle strength: Right hemiparesis DTR: 2+ Plantar reflex: Denser on right, flexor left Gait: not examined Sensory exam: Cooperative Cerebellar: Not cooperative Review of Relevant I have reviewed the following items art (where applicable) has been applied. Labs Laboratory Tests Test 10/25/20 05:45 10/25/20 15:35 10/26/20 13:24 White Blood Count 8.9 x10^3/uL (4.0-11.0) Red Blood Count 3.56 x10^6/uL (3.50-5.40) Hemoglobin 11.4 g/dL (12.0-15.5) Hematocrit 34.2 % (36.0-47.0) Mean Corpuscular Volume 96 fL (79-100) Mean Corpuscular Hemoglobin 32 pg (25-35) Mean Corpuscular Hemoglobin Concent 33 g/dL (31-37) Red Cell Distribution Width 13.8 % (11.5-14.5) Platelet Count 271 x10^3/uL (140-400) Neutrophils (%) (Auto) 84 % (31-73) Lymphocytes (%) (Auto) 9 % (24-48) Monocytes (%) (Auto) 7 % (0-9) Eosinophils (%) (Auto) 0 % (0-3) Basophils (%) (Auto) 0 % (0-3) Neutrophils # (Auto) 7.4 x10^3/uL (1.8-7.7) Lymphocytes # (Auto) 0.8 x10^3/uL (1.0-4.8) Monocytes # (Auto) 0.6 x10^3/uL (0.0-1.1) Eosinophils # (Auto) 0.0 x10^3/uL (0.0-0.7) Basophils # (Auto) 0.0 x10^3/uL (0.0-0.2) Sodium Level 138 mmol/L (136-145) 135 mmol/L (136-145) Potassium Level 4.9 mmol/L (3.5-5.1) 4.5 mmol/L (3.5-5.1) Chloride Level 101 mmol/L (98-107) 100 mmol/L (98-107) Carbon Dioxide Level 30 mmol/L (21-32) 28 mmol/L (21-32) Anion Gap 7 (6-14) 7 (6-14) Blood Urea Nitrogen 27 mg/dL (7-20) 18 mg/dL (7-20) Creatinine 2.3 mg/dL (0.6-1.0) 2.0 mg/dL (0.6-1.0) Estimated GFR (Cockcroft-Gault) 24.6 28.9 BUN/Creatinine Ratio 12 (6-20) Glucose Level 103 mg/dL (70-99) 100 mg/dL (70-99) Calcium Level 9.2 mg/dL (8.5-10.1) 9.3 mg/dL (8.5-10.1) Total Bilirubin 0.6 mg/dL (0.2-1.0) Aspartate Amino Transf (AST/SGOT) 16 U/L (15-37) Alanine Aminotransferase (ALT/SGPT) 18 U/L (14-59) Alkaline Phosphatase 92 U/L (46-116) Total Protein 6.8 g/dL (6.4-8.2) Albumin 2.9 g/dL (3.4-5.0) Albumin/Globulin Ratio 0.7 (1.0-1.7) SARS-CoV-2 Antigen (Rapid) Negative (NEGATIVE) Laboratory Tests Test 10/25/20 15:35 10/26/20 13:24 SARS-CoV-2 Antigen (Rapid) Negative (NEGATIVE) Sodium Level 135 mmol/L (136-145) Potassium Level 4.5 mmol/L (3.5-5.1) Chloride Level 100 mmol/L (98-107) Carbon Dioxide Level 28 mmol/L (21-32) Anion Gap 7 (6-14) Blood Urea Nitrogen 18 mg/dL (7-20) Creatinine 2.0 mg/dL (0.6-1.0) Estimated GFR (Cockcroft-Gault) 28.9 Glucose Level 100 mg/dL (70-99) Calcium Level 9.3 mg/dL (8.5-10.1) Medications Current Medications Atorvastatin Calcium (Lipitor) 80 mg QHS PO ; Start 10/24/20 at 21:00 Acetaminophen (Tylenol) 650 mg PRN Q6HRS PRN PO TEMP > 100.3'F; Start 10/24/20 at 18:45 Aspirin (Ecotrin) 325 mg DAILYWBKFT PO ; Start 10/25/20 at 08:00; Stop 10/25/20 at 08:42; Status DC Aspirin (Aspirin Rectal Supp) 300 mg PRN DAILY PRN OH IF UNABLE TO TAKE PO Last administered on 10/25/20at 09:09; Start 10/24/20 at 18:45 Enoxaparin Sodium (Lovenox 80mg Syringe) 80 mg Q24H SQ ; Start 10/25/20 at 20:00; Stop 10/25/20 at 12:05; Status DC Dextrose/Sodium Chloride 1,000 ml @ 100 mls/hr Q10H IV Last administered on 10/26/20at 13:25; Start 10/25/20 at 01:15 Ondansetron HCl (Zofran) 4 mg PRN Q8HRS PRN IVP NAUSEA/VOMITING 1ST CHOICE; Start 10/25/20 at 01:15 Metoprolol Tartrate (Lopressor Vial) 2.5 mg Q6HRS IVP Last administered on 10/26/20at 13:25; Start 10/25/20 at 12:00 Pantoprazole Sodium (PROTONIX VIAL for IV PUSH) 40 mg DAILYAC IVP Last administered on 10/26/20at 05:58; Start 10/25/20 at 11:00 Enoxaparin Sodium (Lovenox 30mg Syringe) 30 mg Q24H SQ Last administered on 10/25/20at 21:27; Start 10/25/20 at 21:00 Vitals/I & O Vital Sign - Last 24 Hours 10/25/20 10/25/20 10/25/20 10/25/20 16:43 17:23 19:00 19:20 Temp 97.1 98.6 97.1 98.6 Pulse 94 94 99 Resp 18 18 B/P (MAP) 110/52 (71) 110/52 110/57 (74) Pulse Ox 94 98 O2 Delivery Room Air Room Air Room Air 10/25/20 10/25/20 10/26/20 10/26/20 22:34 23:12 02:56 04:08 Temp 98.1 98.9 98.1 98.9 Pulse 117 118 109 Resp 18 16 B/P (MAP) 116/56 (76) 116/56 85/59 (68) 118/52 (74) Pulse Ox 98 95 O2 Delivery Room Air Room Air 10/26/20 10/26/20 10/26/20 10/26/20 05:58 07:00 08:00 11:00 Temp 97.7 98.0 97.7 98.0 Pulse 110 99 116 Resp 16 16 B/P (MAP) 118/48 96/54 (68) 109/62 (78) Pulse Ox 97 93 O2 Delivery Room Air Room Air Room Air 10/26/20 13:25 Pulse 116 B/P (MAP) 109/62 Intake and Output 10/25/20 10/25/20 10/26/20 15:00 23:00 07:00 Intake Total 0 ml 0 ml 0 ml Output Total 300 ml 300 ml 450 ml Balance -300 ml -300 ml -450 ml Images MRI BRAIN WO Date: 10/25/2020 1:06 PM Indication: CVA Comparison: CT 10/24/2020. Technique: Multiplanar multisequence MRI of the brain was performed without intravenous contrast using the standard protocol. Findings: Moderate size region of restricted diffusion involving the left caudate head, anterior limb internal capsule, and putamen which corresponds to the area of infarct seen on the CT. Couple of additional punctate foci of restricted diffu prashant along the insula and left temporal lobe. No acute hemorrhage. The ventricles are normal in size and configuration without hydrocephalus. Mild scattered FLAIR hyperintensities in the subcortical and periventricular deep white matter, a nonspecific finding, most commonly seen with chronic small vessel ischemic disease. Mild cerebral volume loss. The scalp and calvarium are normal. The pituitary and sella are normal. No Chiari malformation. The visualized upper cervical spine is normal. The visualized orbits and globes are normal. The visualized paranasal sinuses are clear. The mastoid air cells are clear. IMPRESSION: 1. Moderate-sized area of acute to subacute infarct involving the left basal ganglia, which corresponds to the area of abnormality seen on the prior CTA. There are a couple of additional punctate foci acute infarct in the left insula and temporal lobe. No acute hemorrhage. 2. Mild chronic small vessel ischemic disease and mild cerebral volume loss. MRA BRAIN WO, MRA NECK WITHOUT CONTRAST DATE: 10/25/2020 1:08 PM INDICATION: CVA MRA HEAD TECHNIQUE: Axial 3-D [id number] images of the intracranial vessels without contrast. 3D reformatted images were performed on a separate workstation and reviewed. MRA NECK TECHNIQUE: MR angiography of the neck was performed without contrast using time of flight technique. 3D reformatted images were performed on a separate workstation and reviewed. COMPARISON: MRI brain obtained concurrently. FINDINGS: Head: Anterior Circulation: The visualized distal internal carotid arteries are patent with no stenosis or aneurysm. Focal signal dropout of a left MCA distal M2 branch. The visualized anterior cerebral and right middle cerebral artery show no significant stenosis or aneurysm. Posterior Circulation: The visualized vertebral arteries, basilar artery, and posterior cerebral arteries show no significant stenosis or aneurysm. No arteriovenous malformation is seen. Neck: The examination is slightly limited secondary to patient motion and noncontrast technique. Antegrade flow within the right common carotid artery. No evidence of high-grade stenosis within the right internal carotid artery, though somewhat limited without intravenous contrast. Antegrade flow within the right vertebral artery. Antegrade flow within the left common carotid artery. No evidence of high-grade stenosis of the left internal carotid artery, though somewhat limited without intravenous contrast. Antegrade flow within the left vertebral artery. IMPRESSION: 1. Focal signal dropout of a left MCA distal M2 branch, consistent with high- grade stenosis. 2. Antegrade flow within the bilateral carotid and vertebral arteries. No evidence for high-grade stenosis of the internal carotid arteries, though somewhat limited without intravenous contrast. Justicifation of Admission Dx: Justifications for Admission: Justification of Admission Dx: Yes NIECY EDWARDS MD Oct 26, 2020 14:57
[2020-10-26] MEDS ORDERED: DIGOXIN IV 500 MCG/2 ML AMPUL. IV ONE (15:45)
[2020-10-26] MEDS: ATORVASTATIN CALCIUM 40 MG TABLET. PO SCH (21:44)
[2020-10-26] MEDS: ENOXAPARIN 30 MG/0.3 ML SYRINGE. SQ SCH (21:45)
[2020-10-27] MEDS: METOPROLOL IV PUSH 5 MG/5 ML VIAL. IVP SCH ×3 (00:07→11:04)
[2020-10-27 02:03] VITALS: BP 91/48
[2020-10-27] MEDS: IV DEXTROSE 5 %-0.45 % NACL 1,000 ML IV SCH ×3 (03:15→23:50)
[2020-10-27 04:36] LABS: HEMATOCRIT 30.8 % (36.0-47.0); HEMOGLOBIN 10.4 g/dL (12.0-15.5); RED BLOOD COUNT 3.24 x10^6/uL (3.50-5.40); RED CELL DISTRIBUTION WIDTH 13.4 % (11.5-14.5); WHITE BLOOD COUNT 9.7 x10^3/uL (4.0-11.0)
[2020-10-27 05:16] LABS: ALBUMIN 2.5 g/dL (3.4-5.0); ALBUMIN/GLOBULIN RATIO 0.7 (1.0-1.7); CALCIUM 8.2 mg/dL (8.5-10.1); CREATININE 1.8 mg/dL (0.6-1.0); GFR 32.7; POTASSIUM 3.9 mmol/L (3.5-5.1); TOTAL BILIRUBIN 0.7 mg/dL (0.2-1.0); TOTAL PROTEIN 6.3 g/dL (6.4-8.2)
[2020-10-27 07:00] VITALS: BP 145/55
--- NOTE | 2020-10-27 09:03 | PN ---
DATE: 10/27/2020 SUBJECTIVE: The patient is resting slightly propped up in bed, in no apparent respiratory distress. She is definitely more awake, alert, responding appropriately. On questioning her, denied any complaint. The nursing staff did not voice any concern. Apparently, she was evaluated by the speech therapist yesterday, who stated that there is no safe POA consistency identified at this time. Overall has improved since bedside evaluation attempt yesterday. PHYSICAL EXAMINATION: GENERAL: When I examined her this morning, she looked well and was clearly in no apparent respiratory distress, pale, but no jaundice or cyanosis. No lymphadenopathy, no thyromegaly. No jugular venous distention. No limb edema. VITAL SIGNS: Her heart rate was 103, blood pressure 145/55, temperature was 99.4, respiratory rate was 18 and oxygen saturation was 94% on room air. HEAD, EYES, EARS, NOSE, AND THROAT: Showed normocephalic, atraumatic. NECK: Supple. HEART: Showed normal first and second heart sounds. No gallop or murmur. CHEST: Clear to auscultation. No crepitation or rhonchi. ABDOMEN: Distended, soft, nontender. NEUROLOGIC: She is awake, alert, responding appropriately, continued to have right-sided facial droop and right-sided flaccid hemiplegia. Her intake was incompletely recorded, output was 1050. As of this morning, her white cell count was 9700, hemoglobin 10, hematocrit 30, MCV 95, and platelet count 251,000. Her chemistry showed a serum sodium 138, potassium 3.9, chloride 101, bicarbonate 27, anion gap of 10, BUN 14, creatinine 1.8, estimated GFR was 32 mL per minute. Her glucose was 103, calcium was 8.2. Total bilirubin, AST, ALT, alkaline phosphatase were normal. Total protein 6.3, albumin was 2.5. Her coronavirus by PCR was not detectable. ASSESSMENT: 1. Left middle cerebral artery territory infarct, right-sided flaccid hemiplegia, aphasia and dysphagia. 2. Cardioembolic infarct, likely due to atrial fibrillation. 3. Paroxysmal atrial fibrillation. 4. Acute on chronic kidney injury, improving. Her creatinine is down further to 1.8 mg/dL. 5. Hyperkalemia, resolved. 6. Hypertension, well controlled. 7. Hyperlipidemia and encephalopathy, improving. PLAN: To continue with IV fluid, continue with IV metoprolol to control the heart rate. Continue with Protonix for GI prophylaxis. Continue Lovenox for DVT prophylaxis. Continue with PT, OT and Speech Therapy. SOUMYA TREVIÑO MD DR: JENIFFER/nidhi JOB#: [id number] / [id number]
--- NOTE | 2020-10-27 09:15 | PDOC ---
Date of Service: DATE: 10/27/20 TIME: 09:12 Subjective: Subjective: Says "good morning" but can't tell me where she is or what year it is. Objective: Vital Signs: Vital Signs Date Time Temp Pulse Resp B/P (MAP) Pulse Ox O2 Delivery O2 Flow Rate FiO2 10/27/20 07:00 99.4 103 18 145/55 (85) 94 Room Air 99.4 Labs: Laboratory Tests Test 10/26/20 13:24 10/27/20 03:57 Sodium Level 135 mmol/L 138 mmol/L Potassium Level 4.5 mmol/L 3.9 mmol/L Chloride Level 100 mmol/L 101 mmol/L Carbon Dioxide Level 28 mmol/L 27 mmol/L Anion Gap 7 10 Blood Urea Nitrogen 18 mg/dL 14 mg/dL Creatinine 2.0 mg/dL 1.8 mg/dL Estimated GFR (Cockcroft-Gault) 28.9 32.7 Glucose Level 100 mg/dL 103 mg/dL Calcium Level 9.3 mg/dL 8.2 mg/dL White Blood Count 9.7 x10^3/uL Red Blood Count 3.24 x10^6/uL Hemoglobin 10.4 g/dL Hematocrit 30.8 % Mean Corpuscular Volume 95 fL Mean Corpuscular Hemoglobin 32 pg Mean Corpuscular Hemoglobin Concent 34 g/dL Red Cell Distribution Width 13.4 % Platelet Count 251 x10^3/uL BUN/Creatinine Ratio 8 Total Bilirubin 0.7 mg/dL Aspartate Amino Transf (AST/SGOT) 18 U/L Alanine Aminotransferase (ALT/SGPT) 18 U/L Alkaline Phosphatase 85 U/L Total Protein 6.3 g/dL Albumin 2.5 g/dL Albumin/Globulin Ratio 0.7 Imaging: [facility] Bedside Swallow Eval 10/26: Pt demo's mild-mod pharyngeal dysphagia w/ inconsistent s/s aspiration. No safe PO consistency identified at this time. Overall improved since BSE attempt yesterday. Anticipate return to at least modified PO diet in near future. See [facility] BSE full report in Interventions. Recommendations: Continue NPO. Will continue [facility] f/u per POC. PE: GEN: NAD LUNGS: CTAB HEART: irregular ABD: soft, non-tender NEURO/PSYCH: awake and alert, right-sided weakness A/P: CVA w/ aphasia and dysphagia A Fib, CKD, normocytic anemia - on ASA supp COVID negative 10/25 -- Follow [facility] evals. Justicifation of Admission Dx: Justifications for Admission: Justification of Admission Dx: Yes ALYSE BOWDEN Oct 27, 2020 09:15
--- NOTE | 2020-10-27 09:17 | PDOC ---
PROGRESS NOTES Date of Service DATE: 10/27/20 TIME: 09:15 Assessment Moderate-sized left basal ganglia acute infarct, with punctate acute infarcts in the left insula and temporal lobe, due to left MCA distal M2 branch, high-grade stenosis, plus role of atrial fibrillation. Atrial fibrillation Obtundation, dysphagia Plan Aspirin Rehabilitation modalities PEG tube Lovenox 30 mg every 24 hours Can consider for oral anticoagulation after the PEG, but not before a week has passed since the stroke Discussed yesterday with daughter, Mary Reynolds Subjective None Objective Vital Signs Date Time Temp Pulse Resp B/P (MAP) Pulse Ox O2 Delivery O2 Flow Rate FiO2 10/27/20 07:00 99.4 103 18 145/55 (85) 94 Room Air 99.4 Intake and Output 10/27/20 07:00 Intake Total 0 ml Output Total 1250 ml Balance -1250 ml Intake Oral 0 ml Output Urine Total 1250 ml PHYSICAL EXAM Eyes half open mumbles a few replies, does not follow commands PERRL. Left gaze preference, does not react to visual stimuli CN: Right central facial weakness Muscle tone: Increased on right Muscle strength: Right hemiparesis DTR: 2+ Plantar reflex: Denser on right, flexor left Gait: not examined Sensory exam: Cooperative Cerebellar: Not cooperative Review of Relevant I have reviewed the following items art (where applicable) has been applied. Labs Laboratory Tests Test 10/25/20 15:35 10/26/20 13:24 10/27/20 03:57 Coronavirus (PCR) Not detected (Not Detected) SARS-CoV-2 Antigen (Rapid) Negative (NEGATIVE) Sodium Level 135 mmol/L (136-145) 138 mmol/L (136-145) Potassium Level 4.5 mmol/L (3.5-5.1) 3.9 mmol/L (3.5-5.1) Chloride Level 100 mmol/L (98-107) 101 mmol/L (98-107) Carbon Dioxide Level 28 mmol/L (21-32) 27 mmol/L (21-32) Anion Gap 7 (6-14) 10 (6-14) Blood Urea Nitrogen 18 mg/dL (7-20) 14 mg/dL (7-20) Creatinine 2.0 mg/dL (0.6-1.0) 1.8 mg/dL (0.6-1.0) Estimated GFR (Cockcroft-Gault) 28.9 32.7 Glucose Level 100 mg/dL (70-99) 103 mg/dL (70-99) Calcium Level 9.3 mg/dL (8.5-10.1) 8.2 mg/dL (8.5-10.1) White Blood Count 9.7 x10^3/uL (4.0-11.0) Red Blood Count 3.24 x10^6/uL (3.50-5.40) Hemoglobin 10.4 g/dL (12.0-15.5) Hematocrit 30.8 % (36.0-47.0) Mean Corpuscular Volume 95 fL (79-100) Mean Corpuscular Hemoglobin 32 pg (25-35) Mean Corpuscular Hemoglobin Concent 34 g/dL (31-37) Red Cell Distribution Width 13.4 % (11.5-14.5) Platelet Count 251 x10^3/uL (140-400) BUN/Creatinine Ratio 8 (6-20) Total Bilirubin 0.7 mg/dL (0.2-1.0) Aspartate Amino Transf (AST/SGOT) 18 U/L (15-37) Alanine Aminotransferase (ALT/SGPT) 18 U/L (14-59) Alkaline Phosphatase 85 U/L (46-116) Total Protein 6.3 g/dL (6.4-8.2) Albumin 2.5 g/dL (3.4-5.0) Albumin/Globulin Ratio 0.7 (1.0-1.7) Laboratory Tests Test 10/26/20 13:24 10/27/20 03:57 Sodium Level 135 mmol/L (136-145) 138 mmol/L (136-145) Potassium Level 4.5 mmol/L (3.5-5.1) 3.9 mmol/L (3.5-5.1) Chloride Level 100 mmol/L (98-107) 101 mmol/L (98-107) Carbon Dioxide Level 28 mmol/L (21-32) 27 mmol/L (21-32) Anion Gap 7 (6-14) 10 (6-14) Blood Urea Nitrogen 18 mg/dL (7-20) 14 mg/dL (7-20) Creatinine 2.0 mg/dL (0.6-1.0) 1.8 mg/dL (0.6-1.0) Estimated GFR (Cockcroft-Gault) 28.9 32.7 Glucose Level 100 mg/dL (70-99) 103 mg/dL (70-99) Calcium Level 9.3 mg/dL (8.5-10.1) 8.2 mg/dL (8.5-10.1) White Blood Count 9.7 x10^3/uL (4.0-11.0) Red Blood Count 3.24 x10^6/uL (3.50-5.40) Hemoglobin 10.4 g/dL (12.0-15.5) Hematocrit 30.8 % (36.0-47.0) Mean Corpuscular Volume 95 fL (79-100) Mean Corpuscular Hemoglobin 32 pg (25-35) Mean Corpuscular Hemoglobin Concent 34 g/dL (31-37) Red Cell Distribution Width 13.4 % (11.5-14.5) Platelet Count 251 x10^3/uL (140-400) BUN/Creatinine Ratio 8 (6-20) Total Bilirubin 0.7 mg/dL (0.2-1.0) Aspartate Amino Transf (AST/SGOT) 18 U/L (15-37) Alanine Aminotransferase (ALT/SGPT) 18 U/L (14-59) Alkaline Phosphatase 85 U/L (46-116) Total Protein 6.3 g/dL (6.4-8.2) Albumin 2.5 g/dL (3.4-5.0) Albumin/Globulin Ratio 0.7 (1.0-1.7) Medications Current Medications Atorvastatin Calcium (Lipitor) 80 mg QHS PO Last administered on 10/26/20at 21:44; Start 10/24/20 at 21:00 Acetaminophen (Tylenol) 650 mg PRN Q6HRS PRN PO TEMP > 100.3'F; Start 10/24/20 at 18:45 Aspirin (Ecotrin) 325 mg DAILYWBKFT PO ; Start 10/25/20 at 08:00; Stop 10/25/20 at 08:42; Status DC Aspirin (Aspirin Rectal Supp) 300 mg PRN DAILY PRN HI IF UNABLE TO TAKE PO Last administered on 10/25/20at 09:09; Start 10/24/20 at 18:45 Enoxaparin Sodium (Lovenox 80mg Syringe) 80 mg Q24H SQ ; Start 10/25/20 at 20:00; Stop 10/25/20 at 12:05; Status DC Dextrose/Sodium Chloride 1,000 ml @ 100 mls/hr Q10H IV Last administered on 10/27/20at 03:15; Start 10/25/20 at 01:15 Ondansetron HCl (Zofran) 4 mg PRN Q8HRS PRN IVP NAUSEA/VOMITING 1ST CHOICE; Start 10/25/20 at 01:15 Metoprolol Tartrate (Lopressor Vial) 2.5 mg Q6HRS IVP Last administered on 10/27/20at 06:34; Start 10/25/20 at 12:00 Pantoprazole Sodium (PROTONIX VIAL for IV PUSH) 40 mg DAILYAC IVP Last administered on 10/26/20at 05:58; Start 10/25/20 at 11:00 Enoxaparin Sodium (Lovenox 30mg Syringe) 30 mg Q24H SQ Last administered on 10/26/20at 21:45; Start 10/25/20 at 21:00 Digoxin (Lanoxin) 250 mcg 1X ONCE IV Last administered on 10/26/20at 17:08; Start 10/26/20 at 15:45; Stop 10/26/20 at 15:46; Status DC Vitals/I & O Vital Sign - Last 24 Hours 10/26/20 10/26/20 10/26/20 10/26/20 11:00 13:25 15:00 17:08 Temp 98.0 97.9 98.0 97.9 Pulse 116 116 116 92 Resp 16 16 B/P (MAP) 109/62 (78) 109/62 95/66 (76) Pulse Ox 93 94 O2 Delivery Room Air Room Air 10/26/20 10/26/20 10/26/20 10/26/20 18:00 19:07 20:00 22:17 Temp 98.4 98.4 98.4 98.4 Pulse 92 102 145 Resp 16 16 B/P (MAP) 95/66 94/62 (73) 90/44 (59) Pulse Ox 95 96 O2 Delivery Room Air Room Air Room Air 10/27/20 10/27/20 10/27/20 10/27/20 00:07 02:03 06:34 07:00 Temp 97.7 99.4 97.7 99.4 Pulse 145 113 113 103 Resp 16 18 B/P (MAP) 90/44 91/48 (62) 91/48 145/55 (85) Pulse Ox 93 94 O2 Delivery Room Air Room Air Intake and Output 10/26/20 10/26/20 10/27/20 15:00 23:00 07:00 Intake Total 0 ml 0 ml 0 ml Output Total 550 ml 700 ml Balance 0 ml -550 ml -700 ml Justicifation of Admission Dx: Justifications for Admission: Justification of Admission Dx: Yes NIECY EDWARDS MD Oct 27, 2020 09:17
[2020-10-27] MEDS: PANTOPRAZOLE IV PUSH 40 MG VIAL. IVP SCH (09:36)
--- NOTE | 2020-10-27 10:12 | NUR ---
SS following up with discharge planning. SS reviewed pt chart and discussed with pt RN. Pt is currently on room air. COVID19 negative. Pt NPO and has no diet at this time. ST following. No plans for PEG currently. PT/OT recommended intermediate unit. Pt's family requesting that pt go to [facility], ; fax [phone]. SS currently awaiting decisions regarding pt's diet needs. SS will continue to follow for discharge planning.
--- NOTE | 2020-10-27 10:29 | PDOC ---
CARDIO Progress Notes Date and Time Date of Service 10/27/2020 Time of Evaluation 1020 Subjective Subjective: No Chest Pain, No shortness of breath, No Palpitations Vitals Vitals Vital Signs Date Time Temp Pulse Resp B/P (MAP) Pulse Ox O2 Delivery O2 Flow Rate FiO2 10/27/20 07:00 99.4 103 18 145/55 (85) 94 Room Air 99.4 Weight Weight [ ] Input and Output Intake and Output Intake and Output 10/27/20 07:00 Intake Total 0 ml Output Total 1250 ml Balance -1250 ml Intake Oral 0 ml Output Urine Total 1250 ml Laboratory Labs Laboratory Tests Test 10/26/20 13:24 10/27/20 03:57 Sodium Level 135 mmol/L (136-145) 138 mmol/L (136-145) Potassium Level 4.5 mmol/L (3.5-5.1) 3.9 mmol/L (3.5-5.1) Chloride Level 100 mmol/L (98-107) 101 mmol/L (98-107) Carbon Dioxide Level 28 mmol/L (21-32) 27 mmol/L (21-32) Anion Gap 7 (6-14) 10 (6-14) Blood Urea Nitrogen 18 mg/dL (7-20) 14 mg/dL (7-20) Creatinine 2.0 mg/dL (0.6-1.0) 1.8 mg/dL (0.6-1.0) Estimated GFR (Cockcroft-Gault) 28.9 32.7 Glucose Level 100 mg/dL (70-99) 103 mg/dL (70-99) Calcium Level 9.3 mg/dL (8.5-10.1) 8.2 mg/dL (8.5-10.1) White Blood Count 9.7 x10^3/uL (4.0-11.0) Red Blood Count 3.24 x10^6/uL (3.50-5.40) Hemoglobin 10.4 g/dL (12.0-15.5) Hematocrit 30.8 % (36.0-47.0) Mean Corpuscular Volume 95 fL (79-100) Mean Corpuscular Hemoglobin 32 pg (25-35) Mean Corpuscular Hemoglobin Concent 34 g/dL (31-37) Red Cell Distribution Width 13.4 % (11.5-14.5) Platelet Count 251 x10^3/uL (140-400) BUN/Creatinine Ratio 8 (6-20) Total Bilirubin 0.7 mg/dL (0.2-1.0) Aspartate Amino Transf (AST/SGOT) 18 U/L (15-37) Alanine Aminotransferase (ALT/SGPT) 18 U/L (14-59) Alkaline Phosphatase 85 U/L (46-116) Total Protein 6.3 g/dL (6.4-8.2) Albumin 2.5 g/dL (3.4-5.0) Albumin/Globulin Ratio 0.7 (1.0-1.7) Physical Exam HEENT: Neck Supple W Full Motion Chest: Symmetric LUNGS: Other (diminished bases) Heart: irregularly irregular (AFIB 90-110) Abdomen: Other (soft obese) Extremities: No Calf Tenderness, Other (trace LE edema) Neurology: other (more alert today, verbally responding more with questions) Assessment Assessment 1. Acute left MCA CVA with aphasia. EF and WM nml. aphasia improving 2. PAFIB: noted on 07/2020. Presently on AFIB 90-110. she declined any cardiac workup and anticoagulation therapy last yr. 3. JULIA on CKD; Cr better at 1.8 4. Hyperkalemia; resolved 5. Hypertension; controlled 6. Hyperlipidemia: LDL 113 7. Encephalopathy: better today Recommendations 1. Remains NPO. Continue low dose IV metoprolol. Unable to titrate up due to marginal BP. Dig today. Monitor BP trend and HR. Dig IV PRN 2. Statin pending swallow eval 3. Lovenox for now. Will change to low dose NOAC when able to take PO and clear with neurology 4. DC lasix and ACEi. IVF while NPO 5. Continue rehab. Supportive care Justicifation of Admission Dx: Justifications for Admission: Justification of Admission Dx: Yes LORENZO MORRIS [employer] OPERATOR Oct 27, 2020 10:29
[2020-10-27] MEDS ORDERED: DIGOXIN IV 500 MCG/2 ML AMPUL. IV ONE (10:30)
[2020-10-27 11:00] VITALS: BP 113/63
[2020-10-27] MEDS ORDERED: METOPROLOL IV PUSH 5 MG/5 ML VIAL. IVP PRN (11:30)
--- NOTE | 2020-10-27 12:03 | NUR ---
SS following up with discharge planning. SS received notification that pt is now on pureed diet. SS phoned and faxed referral to [facility], ; fax [phone]. SS will continue to follow for discharge planning.
[2020-10-27 15:00] VITALS: BP 114/67
--- NOTE | 2020-10-27 16:12 | NUR ---
SS following up with discharge planning. SS received notification from family that they now wanted pt to go to [facility] and [facility], ; fax [phone]. SS phoned and faxed referral to [facility] and [facility]. SS will continue to follow for discharge planning.
[2020-10-27 19:32] VITALS: BP 117/78
[2020-10-27] MEDS ORDERED: METOPROLOL TART IMMED RELEASE 25 MG TABLET. PO SCH (21:00)
[2020-10-27] MEDS: METOPROLOL TART IMMED RELEASE 25 MG TABLET. PO SCH (21:30)
[2020-10-27] MEDS: ENOXAPARIN 30 MG/0.3 ML SYRINGE. SQ SCH (21:31)
[2020-10-27] MEDS: ATORVASTATIN CALCIUM 40 MG TABLET. PO SCH (21:31)
[2020-10-27 22:25] VITALS: BP 135/69
[2020-10-28] MEDS: METOPROLOL TART IMMED RELEASE 25 MG TABLET. PO SCH ×4 (01:05→17:21)
[2020-10-28 02:49] VITALS: BP 122/65
[2020-10-28 07:00] VITALS: BP 110/60
[2020-10-28] MEDS: PANTOPRAZOLE IV PUSH 40 MG VIAL. IVP SCH (08:21)
[2020-10-28] MEDS: IV DEXTROSE 5 %-0.45 % NACL 1,000 ML IV SCH ×2 (08:21→18:02)
--- NOTE | 2020-10-28 09:45 | PN ---
DATE: 10/28/2020 SUBJECTIVE: The patient is resting slightly propped up in bed, sleeping comfortably. She is arousable. On questioning her, denied any complaint. Nursing staff did not voice any concerns, that she had an uneventful night. PHYSICAL EXAMINATION: GENERAL: When I examined her, she was pale, not jaundiced or cyanosed. No thyromegaly. No jugular venous distention. No limb edema. VITAL SIGNS: Her heart rate was 101, blood pressure was 110/60, temperature 99.2, respiratory rate was 18 and oxygen saturation was 95%. HEAD, EYES, EARS, NOSE AND THROAT: Normocephalic, atraumatic. NECK: Supple. HEART: Normal first and second heart sounds. No gallop or murmur. CHEST: Clear to auscultation. No crepitation or rhonchi. ABDOMEN: Distended, soft, nontender. NEUROLOGICAL: Sleepy, but arousable. She does mouth some words, but she does not keep her conversation. She definitely has right-sided facial droop and flaccid right-sided hemiplegia. Her intake was incompletely recorded, output was 1250. LABORATORY DATA: No lab work done this morning. As of yesterday, her hemoglobin 10 and hematocrit 30 with normal white cell count and platelets. Her chemistry showed a BUN of 14 and creatinine of 1.8, that is down. ASSESSMENT: 1. 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 2. Cardioembolic infarct, likely due to atrial fibrillation. 3. Paroxysmal atrial fibrillation. 4. Gkljv-xl-cenzxse kidney injury, improving. Her creatinine is down further to 1.8 mg/dL. 5. Hyperkalemia, has resolved. 6. Hypertension, well controlled. 7. Hyperlipidemia. 8. Encephalopathy, improving. PLAN: To continue with IV fluid, continue with IV metoprolol, continue with Protonix for GI prophylaxis, continue Lovenox for DVT prophylaxis, continue with PT, OT and speech therapy. SOUMYA TREVIÑO MD DR: JENIFFER/nidhi JOB#: [id number] / [id number]
[2020-10-28 11:00] VITALS: BP 115/64
[2020-10-28 15:00] VITALS: BP 127/64
[2020-10-28 19:36] VITALS: BP 116/58
[2020-10-28] MEDS: ENOXAPARIN 30 MG/0.3 ML SYRINGE. SQ SCH (21:24)
[2020-10-28] MEDS: ATORVASTATIN CALCIUM 40 MG TABLET. PO SCH (21:24)
[2020-10-28 23:28] VITALS: BP 123/77
[2020-10-29] MEDS: METOPROLOL TART IMMED RELEASE 25 MG TABLET. PO SCH ×5 (00:03→23:23)
[2020-10-29 03:59] VITALS: BP 137/58
[2020-10-29] MEDS: IV DEXTROSE 5 %-0.45 % NACL 1,000 ML IV SCH ×3 (04:24→23:35)
[2020-10-29 04:43] LABS: HEMATOCRIT 30.6 % (36.0-47.0); HEMOGLOBIN 10.3 g/dL (12.0-15.5); RED BLOOD COUNT 3.19 x10^6/uL (3.50-5.40); RED CELL DISTRIBUTION WIDTH 13.4 % (11.5-14.5); WHITE BLOOD COUNT 10.8 x10^3/uL (4.0-11.0)
[2020-10-29 05:16] LABS: ALBUMIN 2.1 g/dL (3.4-5.0); ALBUMIN/GLOBULIN RATIO 0.5 (1.0-1.7); CALCIUM 8.4 mg/dL (8.5-10.1); CREATININE 1.4 mg/dL (0.6-1.0); GFR 43.7; POTASSIUM 3.8 mmol/L (3.5-5.1); TOTAL BILIRUBIN 0.9 mg/dL (0.2-1.0)
[2020-10-29 07:00] VITALS: BP 121/64
[2020-10-29] MEDS: PANTOPRAZOLE IV PUSH 40 MG VIAL. IVP SCH (08:11)
--- NOTE | 2020-10-29 09:23 | PN ---
DATE: 10/29/2020 SUBJECTIVE: The patient is resting, slightly propped up in bed, in no apparent distress. She is awake and alert. On questioning her, she denied any complaints. Apparently, she is now on a pureed diet with honey-thickened liquid. PHYSICAL EXAMINATION: GENERAL: When I examined her, she looked well and was clearly in no apparent respiratory distress. No pallor, jaundice, cyanosis, or thyromegaly. No jugular venous distention. No lower limb edema. VITAL SIGNS: Her heart rate was 92, blood pressure was 121/64, temperature 97.6, respiratory rate was 16, and oxygen saturation was 97% on room air. HEAD, EYES, EARS, NOSE, AND THROAT: Showed normocephalic, atraumatic. NECK: Supple. HEART: Normal first and second heart sounds. No gallop or murmur. CHEST: Clear to auscultation. No crepitation or rhonchi. ABDOMEN: Distended, soft, nontender. NEUROLOGIC: She is definitely more awake, alert, responding appropriately. She has right-sided facial droop and right-sided flaccid hemiplegia. Her intake over the last 24 hours was incompletely recorded, output was 1500. LABORATORY DATA: As of this morning, her serum sodium was 134, potassium 3.8, chloride 100, bicarbonate 25, anion gap of 9, BUN 12, creatinine 1.4, estimated GFR was 43 mL per minute. Her glucose 101, calcium was 8.4. Total bilirubin, AST, ALT, alkaline phosphatase were normal. Total protein 6, albumin 2.1. Her white cell count was 10,800; hemoglobin 10; hematocrit 30; MCV 96; and platelet count 248,000. ASSESSMENT: 1. 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 2. Cardioembolic infarct, likely due to atrial fibrillation. 3. Paroxysmal atrial fibrillation. 4. Acute on chronic kidney injury, improving. Her creatinine is down to 1.4. 5. Hyperkalemia, has resolved. 6. Hypertension, well controlled. 7. Hyperlipidemia. 8. Encephalopathy, improving. 9. Dysphagia is improving. She is now on a pureed diet and honey-thickened liquid. PLAN: The plan is to continue with IV fluid for now as her intake is continued to be poor. In fact, she refused her breakfast this morning according to the nursing staff. Continue with IV metoprolol. Continue with GI prophylaxis as well as DVT prophylaxis. Continue with PT, OT and speech therapy. SOUMYA TREVIÑO MD DR: JENIFFER/nidhi JOB#: [id number] / [id number]
[2020-10-29 11:00] VITALS: BP_SYST 121; BP_SYST 125; BP_DIAS 59; BP_DIAS 64
[2020-10-29 15:00] VITALS: BP 118/45
[2020-10-29 19:00] VITALS: BP 171/83
[2020-10-29] MEDS: ATORVASTATIN CALCIUM 40 MG TABLET. PO SCH (21:00)
[2020-10-29] MEDS: ENOXAPARIN 30 MG/0.3 ML SYRINGE. SQ SCH (21:01)
[2020-10-29 22:53] VITALS: BP 146/87
[2020-10-30 02:48] VITALS: BP 145/74
[2020-10-30] MEDS: METOPROLOL TART IMMED RELEASE 25 MG TABLET. PO SCH ×3 (05:57→20:59)
[2020-10-30 07:00] VITALS: BP 144/65
[2020-10-30] MEDS: PANTOPRAZOLE IV PUSH 40 MG VIAL. IVP SCH (08:20)
--- NOTE | 2020-10-30 08:42 | PN ---
DATE: 10/30/2020 SUBJECTIVE: The patient is resting, slightly propped up in bed, in no apparent distress. She is awake, alert, answers at times appropriately. On questioning her, denied any complaint, in particular denied any pain or shortness of breath. The nursing staff stated that she has generally uneventful night. She is on a pureed diet, nectar thickened liquid. Her intake is not adequate yet. Her heart rate is well controlled. PHYSICAL EXAMINATION: GENERAL: When I examined her this morning, she looked pale, but no jaundice, cyanosis or thyromegaly. No jugular venous distention. No lower limb edema. VITAL SIGNS: Her heart rate was 95, blood pressure was 144/65, temperature was 98, respiratory rate was 18 and oxygen saturation was 98% on room air. HEAD, EYES, EARS, NOSE AND THROAT: Showed normocephalic, atraumatic. NECK: Supple. HEART: Showed regular first heart sound, normal second heart sounds. No gallop, rub or murmur. CHEST: Shows central trachea, equal bilateral expansion, air entry, vesicular sounds. No crepitation or rhonchi. ABDOMEN: Distended, soft, nontender. NEUROLOGIC: She is definitely more awake, responding at times appropriately. She has right sided facial droop and flaccid right sided hemiplegia. Her intake was incompletely recorded, output was 1050. LABORATORY DATA: No lab work done this morning. As of yesterday, her serum sodium was 134, potassium 3.8, chloride 100, bicarbonate 25, anion gap of 9, BUN 12, creatinine 1.4, estimated GFR was 44 mL per minute. Her glucose 101, calcium was 8.4. Total bilirubin, AST, ALT, alkaline phosphatase were normal. Total protein was 6, albumin was 2.1. White cell count was 10,800, hemoglobin 10, hematocrit 30, MCV 96, and platelet count 248,000. Her coronavirus by PCR was negative. ASSESSMENT: 1. Left middle cerebral artery territory infarct with right sided flaccid hemiplegia, aphasia and dysphagia. Her aphasia is improving. Now she is able to talk and she is now on dysphagia 1 diet. 2. Cardioembolic infarct, likely due to atrial fibrillation. 3. Paroxysmal atrial fibrillation, rate controlled. 4. Acute on chronic kidney injury, improving. Her creatinine is down to 1.4 g/dL. 5. Hyperkalemia has resolved. 6. Hypertension, well controlled. 7. Hyperlipidemia. 8. Encephalopathy is improving. PLAN: To obviously discontinue the IV fluid and start her on oral medication to control the heart rate and perhaps also anticoagulant. Meanwhile, we will continue with PT, OT and speech therapy. SOUMYA TREVIÑO MD DR: JENIFFER/nidhi JOB#: [id number] / [id number]
--- NOTE | 2020-10-30 09:26 | PDOC ---
Date of Service: DATE: 10/30/20 TIME: 09:22 Subjective: Subjective: Mumbles. Objective: Objective: D/w nurse - pt didn't want breakfast this morning but otherwise has been tolerating dysphagia diet. Possible DC today. Vital Signs: Vital Signs Date Time Temp Pulse Resp B/P (MAP) Pulse Ox O2 Delivery O2 Flow Rate FiO2 10/30/20 08:00 Room Air 10/30/20 07:00 98.0 95 18 144/65 (91) 98 98.0 PE: GEN: NAD LUNGS: clear anteriorly HEART: regular rate ABD: soft, non-tender NEURO/PSYCH: mumbles when spoken to A/P: CVA w/ aphasia and dysphagia - tolerating diet A Fib, CKD, normocytic anemia (stable) COVID negative 10/25 -- Tolerating diet. DC per primary. Justicifation of Admission Dx: Justifications for Admission: Justification of Admission Dx: Yes ALYSE BOWDEN Oct 30, 2020 09:26
[2020-10-30 10:04] VITALS: BP 138/61
--- NOTE | 2020-10-30 11:06 | PDOC ---
PROGRESS NOTES Date of Service DATE: 10/30/20 TIME: 11:04 Assessment Moderate-sized left basal ganglia acute infarct, with punctate acute infarcts in the left insula and temporal lobe, due to left MCA distal M2 branch, high-grade stenosis, plus role of atrial fibrillation. Atrial fibrillation Obtundation Dysphagia is better Plan Aspirin Rehabilitation modalities PEG tube on hold, see how she does maintaining nutrition Lovenox 30 mg every 24 hours Okay for oral anticoagulation, should wait until we see if she needs a PEG Subjective None Objective Vital Signs Date Time Temp Pulse Resp B/P (MAP) Pulse Ox O2 Delivery O2 Flow Rate FiO2 10/30/20 10:04 98.6 88 19 138/61 (86) 95 Room Air 98.6 Intake and Output 10/30/20 07:00 Intake Total 1959 ml Output Total 2000 ml Balance -41 ml Intake Oral 100 ml IV Total 1859 ml Output Urine Total 2000 ml PHYSICAL EXAM Eyes half open mumbles a few replies, does not follow commands PERRL. Left gaze preference, does not react to visual stimuli CN: Right central facial weakness Muscle tone: Increased on right Muscle strength: Right hemiparesis DTR: 2+ Plantar reflex: Extensor on right, flexor left Gait: not examined Sensory exam: Cooperative Cerebellar: Not cooperative Review of Relevant I have reviewed the following items art (where applicable) has been applied. Labs Laboratory Tests Test 10/29/20 04:30 White Blood Count 10.8 x10^3/uL (4.0-11.0) Red Blood Count 3.19 x10^6/uL (3.50-5.40) Hemoglobin 10.3 g/dL (12.0-15.5) Hematocrit 30.6 % (36.0-47.0) Mean Corpuscular Volume 96 fL (79-100) Mean Corpuscular Hemoglobin 32 pg (25-35) Mean Corpuscular Hemoglobin Concent 34 g/dL (31-37) Red Cell Distribution Width 13.4 % (11.5-14.5) Platelet Count 248 x10^3/uL (140-400) Sodium Level 134 mmol/L (136-145) Potassium Level 3.8 mmol/L (3.5-5.1) Chloride Level 100 mmol/L (98-107) Carbon Dioxide Level 25 mmol/L (21-32) Anion Gap 9 (6-14) Blood Urea Nitrogen 12 mg/dL (7-20) Creatinine 1.4 mg/dL (0.6-1.0) Estimated GFR (Cockcroft-Gault) 43.7 BUN/Creatinine Ratio 9 (6-20) Glucose Level 101 mg/dL (70-99) Calcium Level 8.4 mg/dL (8.5-10.1) Total Bilirubin 0.9 mg/dL (0.2-1.0) Aspartate Amino Transf (AST/SGOT) 23 U/L (15-37) Alanine Aminotransferase (ALT/SGPT) 17 U/L (14-59) Alkaline Phosphatase 80 U/L (46-116) Total Protein 6.0 g/dL (6.4-8.2) Albumin 2.1 g/dL (3.4-5.0) Albumin/Globulin Ratio 0.5 (1.0-1.7) Medications Current Medications Atorvastatin Calcium (Lipitor) 80 mg QHS PO Last administered on 10/29/20at 21:00; Start 10/24/20 at 21:00 Acetaminophen (Tylenol) 650 mg PRN Q6HRS PRN PO TEMP > 100.3'F; Start 10/24/20 at 18:45 Aspirin (Ecotrin) 325 mg DAILYWBKFT PO ; Start 10/25/20 at 08:00; Stop 10/25/20 at 08:42; Status DC Aspirin (Aspirin Rectal Supp) 300 mg PRN DAILY PRN CA IF UNABLE TO TAKE PO Last administered on 10/25/20at 09:09; Start 10/24/20 at 18:45 Enoxaparin Sodium (Lovenox 80mg Syringe) 80 mg Q24H SQ ; Start 10/25/20 at 20:00; Stop 10/25/20 at 12:05; Status DC Dextrose/Sodium Chloride 1,000 ml @ 100 mls/hr Q10H IV Last administered on 10/29/20at 23:35; Start 10/25/20 at 01:15; Stop 10/30/20 at 08:04; Status DC Ondansetron HCl (Zofran) 4 mg PRN Q8HRS PRN IVP NAUSEA/VOMITING 1ST CHOICE; Start 10/25/20 at 01:15 Metoprolol Tartrate (Lopressor Vial) 2.5 mg Q6HRS IVP Last administered on 10/27/20at 11:04; Start 10/25/20 at 12:00; Stop 10/27/20 at 11:29; Status DC Pantoprazole Sodium (PROTONIX VIAL for IV PUSH) 40 mg DAILYAC IVP Last administered on 10/30/20at 08:20; Start 10/25/20 at 11:00; Stop 10/30/20 at 09:27; Status DC Enoxaparin Sodium (Lovenox 30mg Syringe) 30 mg Q24H SQ Last administered on 10/29/20at 21:01; Start 10/25/20 at 21:00 Digoxin (Lanoxin) 250 mcg 1X ONCE IV Last administered on 10/26/20at 17:08; Start 10/26/20 at 15:45; Stop 10/26/20 at 15:46; Status DC Digoxin (Lanoxin) 250 mcg 1X ONCE IV Last administered on 10/27/20at 11:03; Start 10/27/20 at 10:30; Stop 10/27/20 at 10:31; Status DC Metoprolol Tartrate (Lopressor) 12.5 mg BID PO ; Start 10/27/20 at 21:00; Stop 10/27/20 at 18:12; Status DC Metoprolol Tartrate (Lopressor Vial) 2.5 mg PRN Q6HRS PRN IVP BP CONTROL WHILE PT NPO; Start 10/27/20 at 11:30 Metoprolol Tartrate (Lopressor) 12.5 mg Q6HRS PO Last administered on 10/30/20at 05:57; Start 10/27/20 at 19:00 Pantoprazole Sodium (Protonix) 40 mg DAILYAC PO ; Start 10/31/20 at 07:30 Vitals/I & O Vital Sign - Last 24 Hours 10/29/20 10/29/20 10/29/20 10/29/20 11:55 15:00 17:26 19:00 Temp 97.6 98.8 97.6 98.8 Pulse 99 111 113 93 Resp 16 18 B/P (MAP) 125/59 118/45 (69) 118/45 171/83 (112) Pulse Ox 97 95 O2 Delivery Room Air Room Air 10/29/20 10/29/20 10/29/20 10/30/20 19:40 22:53 23:23 02:48 Temp 98.5 98.7 98.5 98.7 Pulse 99 99 98 Resp 18 20 B/P (MAP) 146/87 (106) 146/87 145/74 (97) Pulse Ox 97 100 O2 Delivery Room Air Room Air Room Air 10/30/20 10/30/20 10/30/20 10/30/20 05:57 07:00 08:00 10:04 Temp 98.0 98.6 98.0 98.6 Pulse 97 95 88 Resp 18 19 B/P (MAP) 145/74 144/65 (91) 138/61 (86) Pulse Ox 98 95 O2 Delivery Room Air Room Air Room Air Intake and Output 10/29/20 10/29/20 10/30/20 15:00 23:00 07:00 Intake Total 1300 ml 659 ml Output Total 1500 ml 500 ml Balance -200 ml 159 ml Justicifation of Admission Dx: Justifications for Admission: Justification of Admission Dx: Yes NIECY EDWARDS MD Oct 30, 2020 11:06
[2020-10-30] MEDS ORDERED: METOPROLOL TART IMMED RELEASE 25 MG TABLET. PO ONE (12:30)
--- NOTE | 2020-10-30 12:31 | PDOC ---
ERIKAPEPE APRN 10/30/20 1231: CARDIO Progress Notes Date and Time Date of Service 10/30/20 Time of Evaluation 1220 Subjective Subjective: No Chest Pain, No shortness of breath, No Palpitations Vitals Vitals Vital Signs Date Time Temp Pulse Resp B/P (MAP) Pulse Ox O2 Delivery O2 Flow Rate FiO2 10/30/20 12:17 102 138/61 10/30/20 10:04 98.6 19 95 Room Air 98.6 Weight Weight [ ] Input and Output Intake and Output Intake and Output 10/30/20 07:00 Intake Total 1959 ml Output Total 2000 ml Balance -41 ml Intake Oral 100 ml IV Total 1859 ml Output Urine Total 2000 ml Physical Exam HEENT: Neck Supple W Full Motion Chest: Symmetric LUNGS: Other (diminished bases) Heart: irregularly irregular (AFIB 90-110) Abdomen: Other (soft obese) Extremities: No Calf Tenderness, Other (trace LE edema) Neurology: other (more alert today, eyes closed, but verbally responding to questions) Assessment Assessment 1. Acute left MCA CVA with aphasia. EF and WM nml. aphasia improving 2. PAFIB: noted 07/2020. Remains in AFIB, rate 90-110. 3. JULIA on CKD; Cr better at 1.4 4. Hyperkalemia; resolved 5. Hypertension; controlled 6. Hyperlipidemia: LDL 113 7. Encephalopathy: better today Recommendations Continue metoprolol; will increase for better rate control Secondary prevention Continue statin Lovenox for now. Consider changing to low dose NOAC. as per neurology Continue rehab modalities Supportive care Justicifation of Admission Dx: Justifications for Admission: Justification of Admission Dx: Yes ROMERO ENGLAND MD 10/30/208: CARDIO Progress Notes Plan Plan Pt. seen and examined. Agree with above WILD LIFE MANAGER note. Supportive care. Thanks PEPE JAMES APRN Oct 30, 2020 12:31 ROMERO ENGLAND MD Oct 30, 2020 21:48
[2020-10-30 14:12] VITALS: BP 106/57
[2020-10-30 19:15] VITALS: BP 146/64
[2020-10-30] MEDS: ATORVASTATIN CALCIUM 40 MG TABLET. PO SCH (20:58)
[2020-10-30] MEDS: ENOXAPARIN 30 MG/0.3 ML SYRINGE. SQ SCH (21:00)
[2020-10-30 23:35] VITALS: BP 111/48
[2020-10-31 03:40] VITALS: BP 119/80
[2020-10-31 07:00] VITALS: BP 129/63
[2020-10-31] MEDS ORDERED: PANTOPRAZOLE 40 MG TABLET.DR. PO SCH (07:30)
--- NOTE | 2020-10-31 08:27 | SNU/HH DC ---
DISCHARGE ORDERS DISCHARGE INFORMATION: DISCHARGE DATE: Oct 31, 2020 FINAL DIAGNOSIS lmca infarct Right sided Hemiplegia , aphasia and dysphagia A/C KIDNEY INJURY HYPERTENSION CONDITION ON DISCHARGE: Stable CODE STATUS: Code Status: Full [facility]CI: SNF STAY <30 DAYS: Yes POST DISCHARGE ORDERS: ACTIVITY ORDERS: Activity as tolerated DIET AFTER DISCHARGE: Renal TREATMENT/EQUIPMENT ORDERS: Physical Therapy For: Evalulation/Treatment Occupational Therapy For: Evaluation/Treatment Speech Language Pathology For: Evaluation/Treatment SOUMYA TREVIÑO MD Oct 31, 2020 08:27
[2020-10-31] MEDS: METOPROLOL TART IMMED RELEASE 25 MG TABLET. PO SCH (08:39)
[2020-10-31 08:41] LABS: ALBUMIN 1.9 g/dL (3.4-5.0); ALBUMIN/GLOBULIN RATIO 0.5 (1.0-1.7); CALCIUM 8.7 mg/dL (8.5-10.1); CREATININE 1.5 mg/dL (0.6-1.0); GFR 40.3; TOTAL PROTEIN 6.1 g/dL (6.4-8.2)
--- NOTE | 2020-10-31 09:12 | PDOC ---
Date of Service: DATE: 10/31/20 TIME: 09:09 Subjective: Subjective: I asked if she ate breakfast - "yup." Objective: Objective: D/w nurse - no GI concerns, plans to DC today. Vital Signs: Vital Signs Date Time Temp Pulse Resp B/P (MAP) Pulse Ox O2 Delivery O2 Flow Rate FiO2 10/31/20 08:39 98 129/63 10/31/20 07:00 98.1 20 93 Room Air 98.1 Labs: Laboratory Tests Test 10/31/20 07:50 Sodium Level 135 mmol/L Potassium Level 4.0 mmol/L Chloride Level 100 mmol/L Carbon Dioxide Level 28 mmol/L Anion Gap 7 Blood Urea Nitrogen 19 mg/dL Creatinine 1.5 mg/dL Estimated GFR (Cockcroft-Gault) 40.3 BUN/Creatinine Ratio 13 Glucose Level 81 mg/dL Calcium Level 8.7 mg/dL Total Bilirubin 1.0 mg/dL Aspartate Amino Transf (AST/SGOT) 9 U/L Alanine Aminotransferase (ALT/SGPT) 26 U/L Alkaline Phosphatase 118 U/L Total Protein 6.1 g/dL Albumin 1.9 g/dL Albumin/Globulin Ratio 0.5 PE: GEN: NAD LUNGS: clear HEART: irregular ABD: NABS, S/ND/NT NEURO/PSYCH: awake and alert, mumbles A/P: CVA w/ aphasia and dysphagia - tolerating diet -- DC plans as above. Justicifation of Admission Dx: Justifications for Admission: Justification of Admission Dx: Yes ALYSE BOWDEN Oct 31, 2020 09:12
--- NOTE | 2020-10-31 10:10 | DS ---
DATE OF DISCHARGE: 10/31/2020 HOSPITAL COURSE: The patient is an 80-year-old -[place] female patient who was transferred from [facility] with basically altered mental status and new onset left middle cerebral artery territory infarct with right-sided hemiplegia, aphasia and dysphagia. She was seen in consultation by the neurologist, white washer as well as the principal research economist as initially the plan for her to have a percutaneous endoscopic gastrostomy tube. She was seen also by the speech and language pathologist. Her level of consciousness has improved. She is now awake, alert, responding appropriately. She did very well on her video swallowing evaluation and she is now on a pureed diet, nectar thickened liquid. Dr. Bell recommended to start her on oral anticoagulant once if there is no need for a PEG tube placement. She has atrial fibrillation that is now well controlled after we increased her metoprolol and as she remained stable, a decision was made to discharge her to [facility] to continue the process of rehabilitation. PHYSICAL EXAMINATION: GENERAL: When I saw her this morning, she looked well and was clearly in no apparent respiratory distress. She was pale, but no jaundice, cyanosis or thyromegaly. No jugular venous distention. No lower limb edema. VITAL SIGNS: Her heart rate was 98, blood pressure was 129/63, temperature was 98.1, respiratory rate was 20, and her oxygen saturation was 93% on room air. HEAD, EYES, EARS, NOSE AND THROAT: Showed normocephalic, atraumatic. NECK: Supple. HEART: Normal first and second heart sounds. No gallop, rub or murmur. CHEST: Clear to auscultation. No crepitation or rhonchi. ABDOMEN: Distended, soft, nontender. NEUROLOGIC: She is definitely more awake, alert, responding appropriately. She continued to have right-sided facial droop and flaccid right-sided hemiplegia. Her intake was 1950, output was 2000. LABORATORY DATA: Her most recent lab work showed a white cell count of 11,000, hemoglobin 10, hematocrit 30, MCV 96, and platelet count 248,000. Her chemistry this morning showed a serum sodium 135, potassium 4, chloride 100, bicarbonate 28, anion gap of 7, BUN 19, creatinine 1.5, estimated GFR was 40 mL per minute. Her glucose was 81, calcium was 8.7. Total bilirubin, AST, ALT were normal. Alkaline phosphatase slightly elevated. Total protein was 6.1, albumin was 1.9. Her coronavirus by PCR was not detected. DISCHARGE MEDICATIONS: She was discharged to [facility] to continue on atorvastatin calcium 80 mg at bedtime, metoprolol 50 mg twice a day and Protonix 40 mg once a day. I left a decision on anticoagulation to the white washer. FINAL DISCHARGE DIAGNOSES: 1. 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 Her aphasia is improving. She is also now able to talk and she is on dysphagia 1 diet. 2. Cardioembolic infarct, likely due to atrial fibrillation. 3. Paroxysmal atrial fibrillation, rate controlled. 4. Acute on chronic kidney injury. Her creatinine has improved from 2.6-1.4. 5. Hyperkalemia has resolved. 6. Hypertension, well controlled. 7. Hyperlipidemia. 8. Encephalopathy that has improved. SOUMYA TREVIÑO MD DR: JENIFFER/nidhi JOB#: [id number] / [id number]
[2020-10-31 10:47] VITALS: BP 120/52
--- NOTE | 2020-10-31 10:59 | NUR ---
SS following up with discharge planning. SS reviewed pt chart and discussed with pt RN. Pt is currently on room air. PT/OT recommended snf unit. COVID19 negative. Pt accepted at [facility], ; fax [phone]. Discharge orders received for snf unit. SS phoned and faxed discharge orders to [facility]. SS currently awaiting transportation time from facility. SS will continue to follow for discharge planning.
--- NOTE | 2020-10-31 11:09 | PDOC ---
PROGRESS NOTES Date of Service DATE: 10/31/20 TIME: 11:04 Assessment Moderate-sized left basal ganglia acute infarct, with punctate acute infarcts in the left insula and temporal lobe, due to left MCA distal M2 branch, high-grade stenosis, plus role of atrial fibrillation. Atrial fibrillation Obtundation Dysphagia is better Plan Agree with transfer to senior living Stop aspirin and Lovenox in favor of apixaban Rehabilitation modalities PEG tube on hold, continue to see how she does maintaining nutrition Lovenox 30 mg every 24 hours Okay for oral anticoagulation, should wait until we see if she needs a PEG Discussed with daughter, including risk, benefits, alternatives, side effects including fatal bleeding of switching her from aspirin plus Lovenox to apixaban. Also discussed the fact that patient may fail to maintain good nutrition and would have to come back and have the PEG placed. Follow-up with me as needed. Objective Vital Signs Date Time Temp Pulse Resp B/P (MAP) Pulse Ox O2 Delivery O2 Flow Rate FiO2 10/31/20 10:47 97.8 75 20 120/52 (74) 94 Room Air 97.8 Intake and Output 10/31/20 07:00 Intake Total 180 ml Output Total 525 ml Balance -345 ml Intake Oral 180 ml Output Urine Total 525 ml PHYSICAL EXAM Eyes half open mumbles a few replies, does not follow commands PERRL. Left gaze preference, does not react to visual stimuli CN: Right central facial weakness Muscle tone: Increased on right Muscle strength: Right hemiparesis DTR: 2+ Plantar reflex: Extensor on right, flexor left Gait: not examined Sensory exam: Cooperative Cerebellar: Not cooperative Review of Relevant I have reviewed the following items art (where applicable) has been applied. Labs Laboratory Tests Test 10/31/20 07:50 Sodium Level 135 mmol/L (136-145) Potassium Level 4.0 mmol/L (3.5-5.1) Chloride Level 100 mmol/L (98-107) Carbon Dioxide Level 28 mmol/L (21-32) Anion Gap 7 (6-14) Blood Urea Nitrogen 19 mg/dL (7-20) Creatinine 1.5 mg/dL (0.6-1.0) Estimated GFR (Cockcroft-Gault) 40.3 BUN/Creatinine Ratio 13 (6-20) Glucose Level 81 mg/dL (70-99) Calcium Level 8.7 mg/dL (8.5-10.1) Total Bilirubin 1.0 mg/dL (0.2-1.0) Aspartate Amino Transf (AST/SGOT) 9 U/L (15-37) Alanine Aminotransferase (ALT/SGPT) 26 U/L (14-59) Alkaline Phosphatase 118 U/L (46-116) Total Protein 6.1 g/dL (6.4-8.2) Albumin 1.9 g/dL (3.4-5.0) Albumin/Globulin Ratio 0.5 (1.0-1.7) Laboratory Tests Test 10/31/20 07:50 Sodium Level 135 mmol/L (136-145) Potassium Level 4.0 mmol/L (3.5-5.1) Chloride Level 100 mmol/L (98-107) Carbon Dioxide Level 28 mmol/L (21-32) Anion Gap 7 (6-14) Blood Urea Nitrogen 19 mg/dL (7-20) Creatinine 1.5 mg/dL (0.6-1.0) Estimated GFR (Cockcroft-Gault) 40.3 BUN/Creatinine Ratio 13 (6-20) Glucose Level 81 mg/dL (70-99) Calcium Level 8.7 mg/dL (8.5-10.1) Total Bilirubin 1.0 mg/dL (0.2-1.0) Aspartate Amino Transf (AST/SGOT) 9 U/L (15-37) Alanine Aminotransferase (ALT/SGPT) 26 U/L (14-59) Alkaline Phosphatase 118 U/L (46-116) Total Protein 6.1 g/dL (6.4-8.2) Albumin 1.9 g/dL (3.4-5.0) Albumin/Globulin Ratio 0.5 (1.0-1.7) Medications Current Medications Atorvastatin Calcium (Lipitor) 80 mg QHS PO Last administered on 10/30/20at 20:58; Start 10/24/20 at 21:00 Acetaminophen (Tylenol) 650 mg PRN Q6HRS PRN PO TEMP > 100.3'F; Start 10/24/20 at 18:45 Aspirin (Ecotrin) 325 mg DAILYWBKFT PO ; Start 10/25/20 at 08:00; Stop 10/25/20 at 08:42; Status DC Aspirin (Aspirin Rectal Supp) 300 mg PRN DAILY PRN NM IF UNABLE TO TAKE PO Last administered on 10/25/20at 09:09; Start 10/24/20 at 18:45 Enoxaparin Sodium (Lovenox 80mg Syringe) 80 mg Q24H SQ ; Start 10/25/20 at 20:00; Stop 10/25/20 at 12:05; Status DC Dextrose/Sodium Chloride 1,000 ml @ 100 mls/hr Q10H IV Last administered on 10/29/20at 23:35; Start 10/25/20 at 01:15; Stop 10/30/20 at 08:04; Status DC Ondansetron HCl (Zofran) 4 mg PRN Q8HRS PRN IVP NAUSEA/VOMITING 1ST CHOICE; Start 10/25/20 at 01:15 Metoprolol Tartrate (Lopressor Vial) 2.5 mg Q6HRS IVP Last administered on 10/27/20at 11:04; Start 10/25/20 at 12:00; Stop 10/27/20 at 11:29; Status DC Pantoprazole Sodium (PROTONIX VIAL for IV PUSH) 40 mg DAILYAC IVP Last administered on 10/30/20at 08:20; Start 10/25/20 at 11:00; Stop 10/30/20 at 09:27; Status DC Enoxaparin Sodium (Lovenox 30mg Syringe) 30 mg Q24H SQ Last administered on 10/30/20at 21:00; Start 10/25/20 at 21:00 Digoxin (Lanoxin) 250 mcg 1X ONCE IV Last administered on 10/26/20at 17:08; Start 10/26/20 at 15:45; Stop 10/26/20 at 15:46; Status DC Digoxin (Lanoxin) 250 mcg 1X ONCE IV Last administered on 10/27/20at 11:03; Start 10/27/20 at 10:30; Stop 10/27/20 at 10:31; Status DC Metoprolol Tartrate (Lopressor) 12.5 mg BID PO ; Start 10/27/20 at 21:00; Stop 10/27/20 at 18:12; Status DC Metoprolol Tartrate (Lopressor Vial) 2.5 mg PRN Q6HRS PRN IVP BP CONTROL WHILE PT NPO; Start 10/27/20 at 11:30 Metoprolol Tartrate (Lopressor) 12.5 mg Q6HRS PO Last administered on 10/30/20at 12:17; Start 10/27/20 at 19:00; Stop 10/30/20 at 12:31; Status DC Pantoprazole Sodium (Protonix) 40 mg DAILYAC PO Last administered on 10/31/20at 08:39; Start 10/31/20 at 07:30 Metoprolol Tartrate (Lopressor) 50 mg BID PO Last administered on 10/31/20at 08:39; Start 10/30/20 at 21:00 Metoprolol Tartrate (Lopressor) 25 mg 1X ONCE PO Last administered on 10/30/20at 12:42; Start 10/30/20 at 12:30; Stop 10/30/20 at 12:32; Status DC Vitals/I & O Vital Sign - Last 24 Hours 10/30/20 10/30/20 10/30/20 10/30/20 12:17 12:42 14:12 19:15 Temp 98.0 99.0 98.0 99.0 Pulse 102 102 85 107 Resp 19 20 B/P (MAP) 138/61 138/61 106/57 (73) 146/64 (91) Pulse Ox 93 96 O2 Delivery Room Air Room Air 10/30/20 10/30/20 10/30/20 10/31/20 19:54 20:59 23:35 03:40 Temp 98.5 98.6 98.5 98.6 Pulse 107 80 99 Resp 18 20 B/P (MAP) 146/64 111/48 (69) 119/80 (93) Pulse Ox 95 93 O2 Delivery Room Air Room Air Room Air 10/31/20 10/31/20 10/31/20 07:00 08:39 10:47 Temp 98.1 97.8 98.1 97.8 Pulse 98 98 75 Resp 20 20 B/P (MAP) 129/63 (85) 129/63 120/52 (74) Pulse Ox 93 94 O2 Delivery Room Air Room Air Intake and Output 10/30/20 10/30/20 10/31/20 15:00 23:00 07:00 Intake Total 150 ml 30 ml Output Total 225 ml 300 ml Balance -75 ml -270 ml Justicifation of Admission Dx: Justifications for Admission: Justification of Admission Dx: Yes NIECY EDWARDS MD Oct 31, 2020 11:09
--- NOTE | 2020-10-31 11:26 | NUR ---
SS following up with discharge planning. Pt will discharge today and go to [facility] between 1300 and 1330. [facility] to provide transportation. Pt, pt's RN, and pt's daughter notified.
--- NOTE | 2020-10-31 13:15 | NUR ---
Discharge Note: NAY MIN BUCKLAND Discharge instructions and discharge home medications reviewed with Patient and a copy given. All questions have been answered and understanding verbalized. The following instructions and handouts were given: follow up, continue care pack, and symptoms worsening. Discontinued lines and drains: peripheral IV's discontinued. Patient discharged to skilled nurse facility via transportation.
--- NOTE | 2020-10-31 16:14 | PDOC ---
CARDIO Progress Notes Date and Time Date of Service 10/31/2020 Time of Evaluation 1100 Subjective Subjective: No Chest Pain, No shortness of breath, No Palpitations Vitals Vitals Vital Signs Date Time Temp Pulse Resp B/P (MAP) Pulse Ox O2 Delivery O2 Flow Rate FiO2 10/31/20 10:47 97.8 75 20 120/52 (74) 94 Room Air 97.8 Weight Weight [ ] Input and Output Intake and Output Intake and Output 10/31/20 07:00 Intake Total 180 ml Output Total 525 ml Balance -345 ml Intake Oral 180 ml Output Urine Total 525 ml Laboratory Labs Laboratory Tests Test 10/31/20 07:50 Sodium Level 135 mmol/L (136-145) Potassium Level 4.0 mmol/L (3.5-5.1) Chloride Level 100 mmol/L (98-107) Carbon Dioxide Level 28 mmol/L (21-32) Anion Gap 7 (6-14) Blood Urea Nitrogen 19 mg/dL (7-20) Creatinine 1.5 mg/dL (0.6-1.0) Estimated GFR (Cockcroft-Gault) 40.3 BUN/Creatinine Ratio 13 (6-20) Glucose Level 81 mg/dL (70-99) Calcium Level 8.7 mg/dL (8.5-10.1) Total Bilirubin 1.0 mg/dL (0.2-1.0) Aspartate Amino Transf (AST/SGOT) 9 U/L (15-37) Alanine Aminotransferase (ALT/SGPT) 26 U/L (14-59) Alkaline Phosphatase 118 U/L (46-116) Total Protein 6.1 g/dL (6.4-8.2) Albumin 1.9 g/dL (3.4-5.0) Albumin/Globulin Ratio 0.5 (1.0-1.7) Physical Exam HEENT: Neck Supple W Full Motion Chest: Symmetric LUNGS: Other (diminished bases) Heart: irregularly irregular (AFIB rate controlled) Abdomen: Soft N/T Extremities: No Calf Tenderness Neurology: follow commands, other (drowsy but arousable) Assessment Assessment 1. Acute left MCA CVA with aphasia. EF and WM nml. aphasia improving 2. PAFIB: noted on 07/2020. rate better controlled. she declined any cardiac workup and anticoagulation therapy last yr. 3. JULIA on CKD; Cr better at 1.5 4. Hyperkalemia; resolved 5. Hypertension; controlled 6. Hyperlipidemia: LDL 113 7. Encephalopathy Recommendations 1. on dysphagia 1 diet. Continue PO lopressor 2. Low dose eliquis for stroke prevention 3. Statin 4. DC lasix and ACEi 5. Continue rehab. Supportive care 6. Awaiting SN[facility] Justicifation of Admission Dx: Justifications for Admission: Justification of Admission Dx: Yes LORENZO MORRIS APRN Oct 31, 2020 16:14
[2020-10-31] MEDS ORDERED: APIXABAN 2.5 MG TABLET. PO SCH (21:00)
== END 2020-10-31 13:18 | DRG 64 ==
LOC: 2 NORTH 17:49
PROVIDERS: ADMIT Internal Medicine; ATTEND Internal Medicine
DX: I63.9 Cerebral infarction, unspecified (principal); N17.0 Acute kidney failure with tubular necrosis; G81.01 Flaccid hemiplegia affecting right dominant side; G93.40 Encephalopathy, unspecified; I48.20 Chronic atrial fibrillation, unspecified; D64.9 Anemia, unspecified; E78.5 Hyperlipidemia, unspecified; E87.5 Hyperkalemia; H54.8 Legal blindness, as defined in USA; I12.9 Hypertensive chronic kidney disease with stage 1 through stage 4 chronic kidney disease, or unspecified chronic kidney disease; I48.0 Paroxysmal atrial fibrillation; R29.731 NIHSS score 31; N18.9 Chronic kidney disease, unspecified; R13.10 Dysphagia, unspecified; R47.01 Aphasia; Z20.822 Contact with and (suspected) exposure to COVID-19; Z80.9 Family history of malignant neoplasm, unspecified; Z82.5 Family history of asthma and other chronic lower respiratory diseases; Z90.49 Acquired absence of other specified parts of digestive tract; Z98.41 Cataract extraction status, right eye; Z98.42 Cataract extraction status, left eye; Z98.51 Tubal ligation status
CPT/HCPCS: 36415; 70544; 70547; 70551; 80048; 80053; 85025; 85027; 87426; 93306; C9113; J1160; J1650; J3490; J7042; U0003; 92526-GN; 92610-GN; 97110-GO; 97110-GP; 97112-GP; 97530-GO; 97530-GP; 97535-GO; G0378